=== PATIENT | male | born 1950 | race Caucasian/White ===

== ENCOUNTER 2017-08-16 13:05 | Inpatient (IN) | payer MEDICARE, OTHER ==
[~2017-08-16] VITALS: Ht 172.7 cm; Wt 62.3 kg
[~2017-08-16 13:05] MED LIST: CARV6.252 PO; DONE10TA21 PO; MEMA10TA PO; RISP0.2515 PO
[2017-08-16] MEDS ORDERED: TEMA15CA PO (13:34)
[2017-08-16] MEDS ORDERED: CHOL50002 PO (13:34)
[2017-08-16] MEDS ORDERED: LORA0.5T PO (13:34)
[2017-08-16] MEDS ORDERED: DIVA500T7 PO (13:34)
[2017-08-16] MEDS ORDERED: LORA10TA7 PO (13:34)
[2017-08-16] MEDS ORDERED: MEMA10TA PO (13:34)
[2017-08-16] MEDS ORDERED: ESOM40CA PO (13:34)
[2017-08-16] MEDS ORDERED: ASPI81TA31 PO (13:34)
[2017-08-16 14:36] LABS: BASOPHILS # (AUTO) 0.1 K/uL (0.0-8.0); BASOPHILS % (AUTO) 0.9 % (0.0-2.0); EOSINOPHILS % (AUTO) 0.6 % (0.0-7.0); HEMATOCRIT 38.6 % (36.7-47.1); HEMOGLOBIN 12.6 g/dL (12.5-16.3); LYMPHOCYTES # (AUTO) 1.6 K/uL (20.0-40.0); LYMPHOCYTES % (AUTO) 19.9 % (20.5-51.5); MEAN CORPUSCULAR HGB CONC 33 g/dL (32.5-36.3); MONOCYTES # (AUTO) 1.1 K/uL (2.0-10.0); MONOCYTES % (AUTO) 14.2 % (0.0-11.0); NEUTROPHILS % (AUTO) 64.4 % (38.5-71.5); PLATELET COUNT (AUTO) 156 K/uL (152-348); RED BLOOD CELL COUNT(AUTO) 4.06 MIL/uL (4.06-5.63); WHITE BLOOD COUNT (AUTO) 7.8 K/uL (3.6-10.2)
[2017-08-16 14:41] LABS: CREATININE 1.6 mg/dL (0.6-1.3); POTASSIUM 4.4 mmol/L (3.5-5.1)
[2017-08-16 14:53] LABS: BILIRUBIN,DIRECT 0.1 mg/dL (0.0-0.2); BILIRUBIN,TOTAL 0.3 mg/dL (0.2-1.0); TOTAL PROTEIN, SERUM 7.1 g/dL (6.4-8.2)
[2017-08-16] MEDS ORDERED: IV NORMAL SALINE 1000 ML BAG IV ONE (15:00)
[2017-08-16] MEDS ORDERED: PIPERACILLIN SODIUM/TAZOBACTAM 3.375 G in IV DEXTROSE 5% 50 ML IV ONE (15:00)
[2017-08-16] MEDS ORDERED: VANCOMYCIN IV 1,000 MG in IV DEXTROSE 5% 250 ML IV ONE (15:00)
--- NOTE | 2017-08-16 15:00 | NUR ---
PT DUGHTR AT BESIDE FEEDING THE PT WITH SOUP.
--- NOTE | 2017-08-16 15:04 | NUR ---
PT DAUGHTER REFUSED CATH, PLACED URINAL
[2017-08-16] MEDS ORDERED: PIPERACILLIN/TAZOBACTAM/D5W 50 ML IV ONE (15:29)
[2017-08-16] MEDS ORDERED: VANCOMYCIN IV 200 ML ONE (15:29)
[2017-08-16 16:16] LABS: *BILIRUBIN,URIN NEGATIVE (NEGATIVE); *BLOOD, URINE Trace-intact (NEGATIVE); *CLARITY,URINE CLEAR (CLEAR); *COLOR,URINE YELLOW (YELLOW); *KETONES,URINE NEGATIVE (NEGATIVE); *PROTEIN,URINE NEGATIVE (NEGATIVE); LEUKOCYTE ESTERASE ,URINE NEGATIVE (NEGATIVE); NITRITE, URINE NEGATIVE (NEGATIVE); PH,URINE 6.5 (5.0-8.0); UGLUCOSE NEGATIVE (NEGATIVE)
[2017-08-16 16:27] LABS: MUCUS,URINE FEW /LPF (0-FEW); SQUAMOUS EPITHELIAL CELL,UR FEW /HPF (NONE SEEN); WBC,URINE 0-3 /HPF (0-3)
[2017-08-16] MEDS ORDERED: ACETAMINOPHEN ES 500 MG TABLET ONE (17:45)
[2017-08-16] MEDS ORDERED: ACETAMINOPHEN ES 500 MG TABLET PO ONE (17:45)
[2017-08-16 20:30] VITALS: BP 125/65
[2017-08-16] MEDS ORDERED: ZOLPIDEM 5 MG TABLET PO PRN (21:45)
--- NOTE | 2017-08-16 22:05 | NUR ---
Received pt admitted to Tele floor at 1999. Daughter at bedside. Patient unable to speak to me, so daughter is answering admission questions. Pt stable. Oriented pt and daughter to the unit and use of call light. Called Dr. Dougherty for orders. Portable CXR done at bedside at this time. Tolerated procedure well.
[2017-08-16] MEDS ORDERED: ALBUTEROL SULFATE 2.5 MG/3 ML NEBU NEB PRN (22:30)
[2017-08-16] MEDS ORDERED: IPRATROPIUM BROMIDE 0.5 MG/2.5 ML NEBU NEB PRN (22:30)
[2017-08-16] MEDS ORDERED: CEFTRIAXONE 1 G VIAL ONE (22:51)
[2017-08-16] MEDS ORDERED: AZITHROMYCIN 500 MG VIAL IV ONE (22:51)
[2017-08-16] MEDS: ENOXAPARIN SODIUM 30 MG/0.3 ML DISP.SYRIN SUBCUT SCH (23:39)
[2017-08-16] MEDS: CEFTRIAXONE 1 G in IV DEXTROSE 5% 50 ML IV SCH (23:40)
[2017-08-17] VITALS: BP 109/51
[2017-08-17] MEDS: AZITHROMYCIN IV 500 MG in IV DEXTROSE 5% 250 ML IV SCH ×2 (00:39→23:05)
[2017-08-17 04:00] VITALS: BP 132/77
[2017-08-17] MEDS: IV NS 1000 ML 1,000 ML IV PRN ×2 (04:27→10:59)
[2017-08-17] MEDS: ACETAMINOPHEN 325 MG TABLET PO PRN ×2 (05:54→20:32)
--- NOTE | 2017-08-17 06:53 | NUR ---
Pt slept lightly throughout the night. Continues with fever all night. Current temp is 99. Administered PRN Tylenol and implemented cooling measures. Tolerated IV antibiotics well- no adverse reaction noted. Fed pt a cup of applesauce and encouraged drinking fluids. Requires assistance to eat and drink. Pt unable to speak/make needs known. All needs attended to. No evidence of distress noted. Daughter will return in the AM to hopefully speak with the PMD. Current tele rhythm is sinus bradycardia.
[2017-08-17 07:26] LABS: BASOPHILS # (AUTO) 0.1 K/uL (0.0-8.0); BASOPHILS % (AUTO) 0.5 % (0.0-2.0); EOSINOPHILS % (AUTO) 0.2 % (0.0-7.0); HEMATOCRIT 36.4 % (36.7-47.1); LYMPHOCYTES # (AUTO) 1.3 K/uL (20.0-40.0); LYMPHOCYTES % (AUTO) 10.1 % (20.5-51.5); MEAN CORPUSCULAR HGB CONC 33 g/dL (32.5-36.3); MEAN CORPUSCULAR VOLUME 94.4 fL (73.0-96.2); MONOCYTES # (AUTO) 1.7 K/uL (2.0-10.0); MONOCYTES % (AUTO) 12.7 % (0.0-11.0); NEUTROPHILS % (AUTO) 76.5 % (38.5-71.5); PLATELET COUNT (AUTO) 107 K/uL (152-348); RED BLOOD CELL COUNT(AUTO) 3.86 MIL/uL (4.06-5.63); WHITE BLOOD COUNT (AUTO) 13.1 K/uL (3.6-10.2)
[2017-08-17 07:36] LABS: BILIRUBIN,TOTAL 0.3 mg/dL (0.2-1.0); CREATININE 1.4 mg/dL (0.6-1.3); MAGNESIUM 1.8 mg/dL (1.8-2.4); PHOSPHOROUS 2.8 mg/dL (2.5-4.9); POTASSIUM 3.8 mmol/L (3.5-5.1); TOTAL PROTEIN, SERUM 6.4 g/dL (6.4-8.2)
--- NOTE | 2017-08-17 07:45 | NUR ---
Awake, non verbal, daughter at bedside. IVF infusing.
[2017-08-17 10:02] LABS: LYMPHOCYTES % (MANUAL) 13 % (20-40); MONOCYTES % (MANUAL) 10 % (2-10); NEUTROPHILS % (MANUAL) 77 % (42-75)
[2017-08-17] MEDS ORDERED: MEMANTINE HCL 10 MG TABLET PO SCH (10:15)
[2017-08-17] MEDS ORDERED: DIVALPROEX 500 MG TABLET.DR PO SCH (10:15)
--- NOTE | 2017-08-17 10:30 | NUR ---
With BM to soft brown stool. Incontinence care done. Repositioned on bed comfortably.
[2017-08-17] MEDS: LORATADINE 10 MG TABLET PO SCH (10:48)
[2017-08-17] MEDS: ASPIRIN 81 MG TAB.CHEW PO SCH (10:49)
[2017-08-17] MEDS: PANTOPRAZOLE SODIUM 40 MG TABLET.DR PO SCH (10:49)
[2017-08-17] MEDS: DIVALPROEX 250 MG TABLET.DR PO SCH ×3 (10:49→21:00)
[2017-08-17] MEDS: CARVEDILOL 6.25 MG TABLET PO SCH ×2 (10:51→17:22)
[2017-08-17] MEDS: LORAZEPAM 0.5 MG TABLET PO PRN (10:53)
[2017-08-17 10:56] VITALS: BP 147/82
[2017-08-17] MEDS: MEMANTINE HCL 10 MG TABLET PO SCH ×2 (12:48→17:22)
[2017-08-17] MEDS: DONEPEZIL 10 MG TABLET PO SCH (12:49)
[2017-08-17] MEDS: risperiDONE 0.25 MG TABLET PO SCH ×2 (12:49→17:22)
[2017-08-17 14:58] VITALS: BP 145/76
--- NOTE | 2017-08-17 16:00 | NUR ---
ST german done at bedside. Diet changed to mechanical soft
--- NOTE | 2017-08-17 18:11 | NUR ---
Afebrile. IVF infusing. Kept dry and comfortable. Daughter at bedside
[2017-08-17 20:00] VITALS: BP 132/75
--- NOTE | 2017-08-17 20:30 | NUR ---
RECEIVED IN BED AWAKE BUT CONFUSED DUE TO HEALTH CONDITION, GIVEN TYLENOL PLUS COOLING MEASURES FOR SLIGHT ELEVATED TEMP, KEPT CLEAN AND DRY, DAUGHTER AT BEDSIDE, KEPT CLEAN AND DRY, CONT ABX FOR ELEVATED, CONT TO MONITOR. NO S/S OF DISTRESS.
[2017-08-17] MEDS: TEMAZEPAM 7.5 MG CAPSULE PO PRN (20:54)
[2017-08-17] MEDS ORDERED: TEMAZEPAM 15 MG CAPSULE PO SCH (21:00)
[2017-08-17] MEDS: ENOXAPARIN SODIUM 30 MG/0.3 ML DISP.SYRIN SUBCUT SCH (21:01)
[2017-08-17] MEDS: CEFTRIAXONE 1 G in IV DEXTROSE 5% 50 ML IV SCH (22:20)
--- NOTE | 2017-08-18 05:58 | NUR ---
PATIENT SLEPT MOST OF THE NIGHT, KEPT CLEAN AND DRY, TURN AND REPOSITION EVERY TWO HOURS, NO SOB NO CHEST PAIN NOTED, CONT TO MONITOR.
[2017-08-18] MEDS: DIVALPROEX 250 MG TABLET.DR PO SCH ×3 (06:07→21:01)
[2017-08-18] MEDS: PANTOPRAZOLE SODIUM 40 MG TABLET.DR PO SCH (06:07)
[2017-08-18 06:08] VITALS: BP 150/87
--- NOTE | 2017-08-18 06:30 | NUR ---
PATIENT PULLED OUT IV LINE, REINSERT NEW ONES, TOLERATE WELL, REORIENT PATIENT.
--- NOTE | 2017-08-18 08:00 | NUR ---
Awake, non verbal, on moderate high back rest. IVF infusing. Daughter at bedside
[2017-08-18] MEDS: risperiDONE 0.25 MG TABLET PO SCH ×2 (09:01→17:35)
[2017-08-18] MEDS: DONEPEZIL 10 MG TABLET PO SCH (09:01)
[2017-08-18] MEDS: MEMANTINE HCL 10 MG TABLET PO SCH ×2 (09:01→17:35)
[2017-08-18] MEDS: ASPIRIN 81 MG TAB.CHEW PO SCH (09:01)
[2017-08-18] MEDS: LORATADINE 10 MG TABLET PO SCH (09:01)
[2017-08-18] MEDS: CARVEDILOL 6.25 MG TABLET PO SCH ×2 (09:03→17:34)
[2017-08-18 09:35] LABS: BASOPHILS % (AUTO) 0.5 % (0.0-2.0); EOSINOPHILS # (AUTO) 0.1 K/uL (0.0-0.7); HEMATOCRIT 37.4 % (36.7-47.1); HEMOGLOBIN 12.4 g/dL (12.5-16.3); LYMPHOCYTES # (AUTO) 1.4 K/uL (20.0-40.0); LYMPHOCYTES % (AUTO) 14.6 % (20.5-51.5); MEAN CORPUSCULAR HEMOGLOBIN 31.3 uug (23.8-33.4); MEAN CORPUSCULAR HGB CONC 33 g/dL (32.5-36.3); MEAN CORPUSCULAR VOLUME 94.3 fL (73.0-96.2); MONOCYTES # (AUTO) 0.5 K/uL (2.0-10.0); MONOCYTES % (AUTO) 5.5 % (0.0-11.0); NEUTROPHILS # (AUTO) 7.4 K/uL (1.8-8.9); NEUTROPHILS % (AUTO) 78.4 % (38.5-71.5); RED BLOOD CELL COUNT(AUTO) 3.97 MIL/uL (4.06-5.63)
[2017-08-18 09:43] LABS: PLATELET COUNT (AUTO) 142 K/uL (152-348); WHITE BLOOD COUNT (AUTO) 9.4 K/uL (3.6-10.2)
[2017-08-18 09:45] LABS: BILIRUBIN,TOTAL 0.3 mg/dL (0.2-1.0); CREATININE 1.4 mg/dL (0.6-1.3); MAGNESIUM 1.9 mg/dL (1.8-2.4); PHOSPHOROUS 3.7 mg/dL (2.5-4.9); POTASSIUM 3.8 mmol/L (3.5-5.1); TOTAL PROTEIN, SERUM 6.7 g/dL (6.4-8.2)
--- NOTE | 2017-08-18 10:00 | NUR ---
Incontinence care with sponge bath given. Repositioned comfortably
[2017-08-18] MEDS: IV NS 1000 ML 1,000 ML IV PRN ×2 (10:03→17:38)
[2017-08-18 11:59] VITALS: BP 142/76
--- NOTE | 2017-08-18 14:00 | NUR ---
Incontinence care done. Repositioned comfortably
[2017-08-18 15:55] VITALS: BP 136/71
--- NOTE | 2017-08-18 17:27 | NUR ---
Daughter at bedside assisting with meal
[2017-08-18 20:00] VITALS: BP 146/83
[2017-08-18] MEDS: TEMAZEPAM 7.5 MG CAPSULE PO PRN (20:53)
[2017-08-18] MEDS: ENOXAPARIN SODIUM 30 MG/0.3 ML DISP.SYRIN SUBCUT SCH (20:54)
[2017-08-18] MEDS ORDERED: OSELTAMIVIR PHOSPHATE 75 MG CAPSULE PO SCH (21:00)
[2017-08-18] MEDS: CEFTRIAXONE 1 G in IV DEXTROSE 5% 50 ML IV SCH (21:01)
[2017-08-18] MEDS: AZITHROMYCIN IV 500 MG in IV DEXTROSE 5% 250 ML IV SCH (21:02)
[2017-08-18] MEDS: OSELTAMIVIR NG/GT 30 MG/5 ML LIQ PO ONE ×2 (21:02→21:56)
[2017-08-19] MEDS: LORAZEPAM 0.5 MG TABLET PO PRN (03:10)
[2017-08-19] MEDS: IV NS 1000 ML 1,000 ML IV PRN (05:13)
[2017-08-19 05:31] VITALS: BP 127/65
[2017-08-19] MEDS: DIVALPROEX 250 MG TABLET.DR PO SCH ×2 (06:10→15:02)
[2017-08-19] MEDS: PANTOPRAZOLE SODIUM 40 MG TABLET.DR PO SCH (06:10)
--- NOTE | 2017-08-19 06:46 | NUR ---
Patient given PRN Restoril last night to help with sleep. Pt slept for about 3 hours and woke up moving around in bed a lot. Administered PRN Ativan, which helped calm pt and let him sleep for 2 more hours. Pt constantly moving around in bed, unable to sleep. Offered food and fluids, changed diapers as needed. Otherwise no significant events. Remained afebrile through the shift.
[2017-08-19 06:59] LABS: BASOPHILS # (AUTO) 0.1 K/uL (0.0-8.0); BASOPHILS % (AUTO) 0.8 % (0.0-2.0); EOSINOPHILS # (AUTO) 0.2 K/uL (0.0-0.7); EOSINOPHILS % (AUTO) 2.1 % (0.0-7.0); HEMATOCRIT 36.4 % (36.7-47.1); HEMOGLOBIN 12.2 g/dL (12.5-16.3); LYMPHOCYTES # (AUTO) 1.7 K/uL (20.0-40.0); LYMPHOCYTES % (AUTO) 17.1 % (20.5-51.5); MEAN CORPUSCULAR HEMOGLOBIN 31.4 uug (23.8-33.4); MEAN CORPUSCULAR HGB CONC 34 g/dL (32.5-36.3); MEAN CORPUSCULAR VOLUME 93.8 fL (73.0-96.2); MONOCYTES # (AUTO) 1.2 K/uL (2.0-10.0); MONOCYTES % (AUTO) 12.6 % (0.0-11.0); NEUTROPHILS # (AUTO) 6.6 K/uL (1.8-8.9); NEUTROPHILS % (AUTO) 67.4 % (38.5-71.5); PLATELET COUNT (AUTO) 164 K/uL (152-348); RED BLOOD CELL COUNT(AUTO) 3.88 MIL/uL (4.06-5.63); WHITE BLOOD COUNT (AUTO) 9.7 K/uL (3.6-10.2)
--- NOTE | 2017-08-19 07:39 | NUR ---
Received client in bed wake and alert in a flat supine position. Client is non-verbal, daughter is by bedside. No apparent s/s of pain, SOB, distress or discomfort. IV hydration running at this time. Bed at lowest position for safety and call light within reach for assistance
[2017-08-19 07:42] LABS: BILIRUBIN,TOTAL 0.3 mg/dL (0.2-1.0); CREATININE 1.4 mg/dL (0.6-1.3); PHOSPHOROUS 3.9 mg/dL (2.5-4.9); POTASSIUM 5.3 mmol/L (3.5-5.1); TOTAL PROTEIN, SERUM 6.7 g/dL (6.4-8.2)
[2017-08-19] MEDS ORDERED: AZIT250T13 PO (07:53)
[2017-08-19] MEDS ORDERED: CEFT1VIA15 IV ×2 (07:53→20:27)
--- NOTE | 2017-08-19 08:18 | NUR ---
Seen and evaluated by MD at this time
[2017-08-19] MEDS: CARVEDILOL 6.25 MG TABLET PO SCH ×2 (08:52→17:23)
[2017-08-19] MEDS: DONEPEZIL 10 MG TABLET PO SCH (08:52)
[2017-08-19] MEDS: MEMANTINE HCL 10 MG TABLET PO SCH ×2 (08:53→17:22)
[2017-08-19] MEDS: LORATADINE 10 MG TABLET PO SCH (08:53)
[2017-08-19] MEDS: risperiDONE 0.25 MG TABLET PO SCH ×2 (08:53→17:23)
[2017-08-19] MEDS: ASPIRIN 81 MG TAB.CHEW PO SCH (08:53)
--- NOTE | 2017-08-19 11:20 | NUR ---
Physical Therapy in progress at this time with the assistance of two physical therapists. Able to ambulate with assistive device and two therapists. Family in the room and now walking behind the client and the therapists down the hallway. Client is tolerating walking well, no apparent s/s of pain, distress, discomfort or SOB
[2017-08-19 11:32] VITALS: BP 109/63
[2017-08-19 15:43] VITALS: BP 124/67
[2017-08-19 17:23] VITALS: BP 140/95
--- NOTE | 2017-08-19 18:00 | NUR ---
Client discharged to [facility] rehab center with MD orders, Client is accompanied by STONE DERRICKMAN AND RIGGER and my daughter via wheelchair. No apparent s/s of pain, distress, discomfort or SOB. Medications for 1700 and BP for 1800 given. Report was given to Lexy at 1645.
[2017-08-24] MEDS ORDERED: ERGOCALCIFEROL 50,000 UNIT CAPSULE PO SCH (09:00)
== END 2017-08-19 17:55 | DRG 871 ==
LOC: ER 13:05 → TELE 19:13 → MED 08-17 11:05
PROVIDERS: ADMIT Internal Medicine; ATTEND Internal Medicine
DX: A41.9 Sepsis, unspecified organism (principal); G92 Toxic encephalopathy; E87.2 Acidosis; J21.9 Acute bronchiolitis, unspecified; G30.9 Alzheimer's disease, unspecified; F02.80 Dementia in other diseases classified elsewhere, unspecified severity, without behavioral disturbance, psychotic disturbance, mood disturbance, and anxiety; R65.20 Severe sepsis without septic shock; K21.9 Gastro-esophageal reflux disease without esophagitis; Z79.82 Long term (current) use of aspirin; K59.00 Constipation, unspecified; R32 Unspecified urinary incontinence; Z79.899 Other long term (current) drug therapy; I25.10 Atherosclerotic heart disease of native coronary artery without angina pectoris; I10 Essential (primary) hypertension
CPT/HCPCS: 36415; 70030-TC; 71045; 80164; 83605; 83735; 84100; 84443; 85025; 85730; 87040; 87086; 87400; 92610; 93005; A4663; A9150; J0456; J0696; J1650; J2543; J3370; J3490; J7030; J7060

== ENCOUNTER 2017-08-19 18:13 | Inpatient (IN) | payer MEDICARE, OTHER ==
[~2017-08-19] VITALS: Ht 180.3 cm; Wt 67.6 kg
[~2017-08-19 18:13] MED LIST changes: +ASPI81TA31 PO; +AZIT250T13 PO; +CEFT1VIA15 IV; +CHOL50002 PO; +DIVA500T7 PO; +ESOM40CA PO; +LORA0.5T PO; +LORA10TA7 PO; +TEMA15CA PO
[2017-08-19] MEDS ORDERED: Z GUARD REMEDY PASTE 57 GM TUBE TOP PRN (18:30)
[2017-08-19] MEDS ORDERED: CEFT1VIA15 IV (20:27)
[2017-08-19] MEDS ORDERED: CEFTRIAXONE 1 G in IV DEXTROSE 5% 50 ML IV SCH ×2 (20:30→21:45)
[2017-08-19] MEDS ORDERED: CHOLECALCIFEROL 50000 UNIT PO SCH (20:30)
[2017-08-19] MEDS ORDERED: TEMAZEPAM 15 MG CAPSULE PO PRN (20:30)
[2017-08-19] MEDS: AZITHROMYCIN 250 MG TABLET PO SCH (21:43)
[2017-08-19] MEDS: MEMANTINE HCL 10 MG TABLET PO SCH (21:43)
[2017-08-19] MEDS: LORAZEPAM 0.5 MG TABLET PO PRN (21:43)
[2017-08-19] MEDS: CEFTRIAXONE 1 G in IV NORMAL SALINE 50 ML IV SCH (21:51)
[2017-08-19] MEDS: TEMAZEPAM 7.5 MG CAPSULE PO PRN (22:36)
[2017-08-20] MEDS: PANTOPRAZOLE SODIUM 40 MG TABLET.DR PO SCH (06:41)
[2017-08-20 07:40] LABS: BASOPHILS % (AUTO) 0.6 % (0.0-2.0); EOSINOPHILS # (AUTO) 0.1 K/uL (0.0-0.7); EOSINOPHILS % (AUTO) 1.6 % (0.0-7.0); HEMATOCRIT 35.7 % (36.7-47.1); LYMPHOCYTES # (AUTO) 1.6 K/uL (20.0-40.0); LYMPHOCYTES % (AUTO) 20.9 % (20.5-51.5); MEAN CORPUSCULAR HEMOGLOBIN 31.5 uug (23.8-33.4); MEAN CORPUSCULAR HGB CONC 34 g/dL (32.5-36.3); MEAN CORPUSCULAR VOLUME 93.5 fL (73.0-96.2); MONOCYTES % (AUTO) 13.5 % (0.0-11.0); NEUTROPHILS # (AUTO) 4.7 K/uL (1.8-8.9); NEUTROPHILS % (AUTO) 63.4 % (38.5-71.5); PLATELET COUNT (AUTO) 184 K/uL (152-348); RED BLOOD CELL COUNT(AUTO) 3.82 MIL/uL (4.06-5.63); WHITE BLOOD COUNT (AUTO) 7.5 K/uL (3.6-10.2)
[2017-08-20] MEDS: ASPIRIN 81 MG TAB.CHEW PO SCH (08:16)
[2017-08-20] MEDS: DONEPEZIL 10 MG TABLET PO SCH (08:16)
[2017-08-20] MEDS: AZITHROMYCIN 250 MG TABLET PO SCH (08:17)
[2017-08-20] MEDS: risperiDONE 0.25 MG TABLET PO SCH ×2 (08:17→17:59)
[2017-08-20] MEDS: LORATADINE 10 MG TABLET PO SCH (08:17)
[2017-08-20] MEDS: DIVALPROEX 500 MG TABLET.DR PO SCH ×3 (08:18→17:59)
[2017-08-20] MEDS: MEMANTINE HCL 10 MG TABLET PO SCH ×2 (08:18→21:00)
[2017-08-20] MEDS: CARVEDILOL 6.25 MG TABLET PO SCH ×2 (08:19→17:59)
[2017-08-20 08:30] LABS: CREATININE 1.2 mg/dL (0.6-1.3); PHOSPHOROUS 3.8 mg/dL (2.5-4.9); POTASSIUM 3.9 mmol/L (3.5-5.1)
[2017-08-20] MEDS ORDERED: Medication Not On Formulary EA (Donepezil Hcl 10 MG) PO SCH (09:00)
[2017-08-20] MEDS ORDERED: MEMANTINE HCL 10 MG TABLET PO SCH (09:00)
[2017-08-20] MEDS ORDERED: AZITHROMYCIN 250 MG TABLET PO SCH (09:00)
[2017-08-20 20:21] VITALS: BP 120/73
[2017-08-20] MEDS: LACTOBACILLUS RHAMNOSUS GG 1 EACH CAPSULE PO SCH (21:00)
[2017-08-20] MEDS: LORAZEPAM 0.5 MG TABLET PO PRN (21:00)
[2017-08-20] MEDS: CEFTRIAXONE 1 G in IV NORMAL SALINE 50 ML IV SCH (21:06)
[2017-08-20] MEDS: TEMAZEPAM 7.5 MG CAPSULE PO PRN (21:49)
[2017-08-21] MEDS: PANTOPRAZOLE SODIUM 40 MG TABLET.DR PO SCH (06:40)
[2017-08-21 07:30] VITALS: BP 121/72
[2017-08-21] MEDS: AZITHROMYCIN 250 MG TABLET PO SCH (10:03)
[2017-08-21] MEDS: LORATADINE 10 MG TABLET PO SCH (10:03)
[2017-08-21] MEDS: LACTOBACILLUS RHAMNOSUS GG 1 EACH CAPSULE PO SCH ×2 (10:03→20:52)
[2017-08-21] MEDS: DONEPEZIL 10 MG TABLET PO SCH (10:03)
[2017-08-21] MEDS: DIVALPROEX 500 MG TABLET.DR PO SCH ×3 (10:03→17:08)
[2017-08-21] MEDS: ACETAMINOPHEN ES 500 MG TABLET PO PRN (10:04)
[2017-08-21] MEDS: CARVEDILOL 6.25 MG TABLET PO SCH ×2 (10:04→17:11)
[2017-08-21] MEDS: ASPIRIN 81 MG TAB.CHEW PO SCH (10:04)
[2017-08-21] MEDS: MEMANTINE HCL 10 MG TABLET PO SCH ×2 (10:04→20:52)
[2017-08-21] MEDS: risperiDONE 0.25 MG TABLET PO SCH ×2 (10:04→17:08)
[2017-08-21 20:19] VITALS: BP 144/82
[2017-08-21] MEDS: LORAZEPAM 0.5 MG TABLET PO PRN (20:52)
[2017-08-21] MEDS: CEFTRIAXONE 1 G in IV NORMAL SALINE 50 ML IV SCH (20:58)
[2017-08-21] MEDS: TEMAZEPAM 7.5 MG CAPSULE PO PRN (22:48)
[2017-08-22] MEDS: PANTOPRAZOLE SODIUM 40 MG TABLET.DR PO SCH (06:20)
[2017-08-22 08:05] VITALS: BP 118/75
[2017-08-22] MEDS: DIVALPROEX 500 MG TABLET.DR PO SCH ×3 (09:20→16:35)
[2017-08-22] MEDS: LACTOBACILLUS RHAMNOSUS GG 1 EACH CAPSULE PO SCH ×2 (09:20→20:29)
[2017-08-22] MEDS: MEMANTINE HCL 10 MG TABLET PO SCH ×2 (09:20→20:29)
[2017-08-22] MEDS: risperiDONE 0.25 MG TABLET PO SCH ×2 (09:20→16:36)
[2017-08-22] MEDS: LORATADINE 10 MG TABLET PO SCH (09:20)
[2017-08-22] MEDS: AZITHROMYCIN 250 MG TABLET PO SCH (09:20)
[2017-08-22] MEDS: DONEPEZIL 10 MG TABLET PO SCH (09:20)
[2017-08-22] MEDS: ACETAMINOPHEN ES 500 MG TABLET PO PRN ×2 (09:20→16:36)
[2017-08-22] MEDS: ASPIRIN 81 MG TAB.CHEW PO SCH (09:21)
[2017-08-22] MEDS: CARVEDILOL 6.25 MG TABLET PO SCH ×2 (09:21→16:34)
[2017-08-22 19:30] VITALS: BP 126/73
[2017-08-22] MEDS: LORAZEPAM 0.5 MG TABLET PO PRN (20:29)
[2017-08-22] MEDS: CEFTRIAXONE 1 G in IV NORMAL SALINE 50 ML IV SCH (21:12)
[2017-08-22] MEDS: TEMAZEPAM 7.5 MG CAPSULE PO PRN (21:43)
[2017-08-23] MEDS: PANTOPRAZOLE SODIUM 40 MG TABLET.DR PO SCH (06:09)
[2017-08-23 08:00] VITALS: BP 140/85
[2017-08-23] MEDS ORDERED: ERGOCALCIFEROL 50,000 UNIT CAPSULE PO SCH (09:00)
[2017-08-23] MEDS: LACTOBACILLUS RHAMNOSUS GG 1 EACH CAPSULE PO SCH (09:29)
[2017-08-23] MEDS: risperiDONE 0.25 MG TABLET PO SCH (09:29)
[2017-08-23] MEDS: LORATADINE 10 MG TABLET PO SCH (09:29)
[2017-08-23] MEDS: MEMANTINE HCL 10 MG TABLET PO SCH (09:29)
[2017-08-23] MEDS: DIVALPROEX 500 MG TABLET.DR PO SCH (09:29)
[2017-08-23 09:30] VITALS: BP 140/85
[2017-08-23] MEDS: CARVEDILOL 6.25 MG TABLET PO SCH (09:30)
[2017-08-23] MEDS: ASPIRIN 81 MG TAB.CHEW PO SCH (09:30)
[2017-08-23] MEDS: DONEPEZIL 10 MG TABLET PO SCH (09:30)
[2017-08-23] MEDS: AZITHROMYCIN 250 MG TABLET PO SCH (09:31)
[2017-08-23] MEDS: ACETAMINOPHEN ES 500 MG TABLET PO PRN (09:33)
== END 2017-08-23 12:00 | DRG 71 ==
PROVIDERS: ADMIT Physical Medicine & Rehabilitation Pain Medicine; ATTEND Physical Medicine & Rehabilitation Pain Medicine
DX: G93.41 Metabolic encephalopathy (principal); J21.9 Acute bronchiolitis, unspecified; G30.9 Alzheimer's disease, unspecified; F02.80 Dementia in other diseases classified elsewhere, unspecified severity, without behavioral disturbance, psychotic disturbance, mood disturbance, and anxiety; F03.90 Unspecified dementia, unspecified severity, without behavioral disturbance, psychotic disturbance, mood disturbance, and anxiety; I10 Essential (primary) hypertension; I25.10 Atherosclerotic heart disease of native coronary artery without angina pectoris; R26.9 Unspecified abnormalities of gait and mobility; R53.1 Weakness
CPT/HCPCS: 36415; 70030-TC; 80164; 83735; 84100; 85025; 92523; 97110; 97112; 97116; 97530; 97535; A9150; J0696; J3490; J7050; J7060; Q0144

== ENCOUNTER 2018-11-02 13:13 | Inpatient (IN) | payer MEDICARE, OTHER ==
[~2018-11-02] VITALS: Ht 180.3 cm; Wt 63.5 kg
[~2018-11-02 13:13] MED LIST changes: +DIVA-78 PO; -DIVA500T7 PO
[2018-11-02] MEDS ORDERED: IV NORMAL SALINE 500 ML BAG IV ONE (13:30)
[2018-11-02] MEDS ORDERED: QUET25TA PO (13:48)
[2018-11-02 13:54] LABS: CREATININE 1.4 mg/dL (0.6-1.3); POTASSIUM 4.6 mmol/L (3.5-5.1)
[2018-11-02 13:58] LABS: BASOPHILS % (AUTO) 0.8 % (0.0-2.0); EOSINOPHILS # (AUTO) 0.1 K/uL (0.0-0.7); HEMATOCRIT 34.3 % (36.7-47.1); HEMOGLOBIN 11.2 g/dL (12.5-16.3); LYMPHOCYTES # (AUTO) 1.2 K/uL (20.0-40.0); LYMPHOCYTES % (AUTO) 22.8 % (20.5-51.5); MEAN CORPUSCULAR HEMOGLOBIN 31.4 uug (23.8-33.4); MEAN CORPUSCULAR HGB CONC 33 g/dL (32.5-36.3); MEAN CORPUSCULAR VOLUME 96.1 fL (73.0-96.2); MONOCYTES # (AUTO) 0.6 K/uL (2.0-10.0); MONOCYTES % (AUTO) 10.5 % (0.0-11.0); NEUTROPHILS # (AUTO) 3.5 K/uL (1.8-8.9); NEUTROPHILS % (AUTO) 64.9 % (38.5-71.5); PLATELET COUNT (AUTO) 129 K/uL (152-348); RED BLOOD CELL COUNT(AUTO) 3.57 MIL/uL (4.06-5.63); WHITE BLOOD COUNT (AUTO) 5.3 K/uL (3.6-10.2)
[2018-11-02 14:00] LABS: BILIRUBIN,DIRECT 0.1 mg/dL (0.0-0.2); BILIRUBIN,TOTAL 0.3 mg/dL (0.2-1.0); TOTAL PROTEIN, SERUM 6.7 g/dL (6.4-8.2)
[2018-11-02] MEDS ORDERED: IV NORMAL SALINE 1000 ML BAG IV ONE (14:30)
[2018-11-02 15:32] LABS: *BILIRUBIN,URIN NEGATIVE (NEGATIVE); *BLOOD, URINE NEGATIVE (NEGATIVE); *CLARITY,URINE CLEAR (CLEAR); *COLOR,URINE YELLOW (YELLOW); *KETONES,URINE NEGATIVE (NEGATIVE); LEUKOCYTE ESTERASE ,URINE NEGATIVE (NEGATIVE); NITRITE, URINE NEGATIVE (NEGATIVE); PH,URINE 5.5 (5.0-8.0); UGLUCOSE NEGATIVE (NEGATIVE)
[2018-11-02 15:37] LABS: MUCUS,URINE MANY /LPF (0-FEW); RBC,URINE 0-3 /HPF (0-3); SQUAMOUS EPITHELIAL CELL,UR FEW /HPF (NONE SEEN); WBC,URINE 0-3 /HPF (0-3)
[2018-11-02 17:05] VITALS: BP 129/82
[2018-11-02] MEDS ORDERED: IV NS 1000 ML 1,000 ML IV SCH (18:30)
--- NOTE | 2018-11-02 19:10 | NUR ---
RECEIVED PATIENT FROM ER. NO RESPIRATORY DISTRESS O2 95% SHIVERING NOTED AFEBRILE NS STARTED AT 50ML PER HR CARE PLAN INITIATED PATIENT SEEN BY MD. SAFETY MAINTAINED
[2018-11-02 19:11] VITALS: BP 120/75
--- NOTE | 2018-11-02 19:30 | NUR ---
PATIENT RECEIVED LYING IN BED AND CONFUSED. NO SIGNS OF RESPIRATORY DISTRESS O2 SAT AT 97%. BED IN LOWEST POSITION, SIDE RAILS UP X2. CALL LIGHT IN REACH.
[2018-11-02] MEDS ORDERED: LORAZEPAM 0.5 MG TABLET PO PRN (20:30)
[2018-11-02] MEDS ORDERED: MAGNESIUM HYDROXIDE 30 ML LIQUID UDC PO PRN (20:45)
[2018-11-02] MEDS ORDERED: ZOLPIDEM 5 MG TABLET PO PRN (20:45)
[2018-11-02] MEDS ORDERED: ONDANSETRON 4 MG/2 ML VIAL IV PRN (20:45)
[2018-11-02] MEDS ORDERED: Z GUARD REMEDY PASTE 57 GM TUBE TOP PRN (20:45)
[2018-11-02] MEDS ORDERED: HYDROCODONE/APAP 5-325MG TABLET PO PRN (20:45)
[2018-11-02] MEDS ORDERED: TEMAZEPAM 7.5 MG CAPSULE PO PRN (21:30)
[2018-11-02] MEDS: DONEPEZIL 10 MG TABLET PO SCH (21:59)
[2018-11-02 23:53] VITALS: BP 162/83
[2018-11-03 03:13] VITALS: BP 128/80
--- NOTE | 2018-11-03 05:48 | NUR ---
PATIENT SLEEPING INTERMITTENTLY. A/OX3 AND CONFUSED. COMFORT MEASURES AND SAFETY MEASURES PROVIDED. BED IN LOWEST POSITION. BED ALARM ON. SIDE RAIL X2. CALL LIGHT WITHIN REACH.
[2018-11-03] MEDS: PANTOPRAZOLE SODIUM 40 MG TABLET.DR PO SCH (06:02)
--- NOTE | 2018-11-03 07:00 | NUR ---
PATIENT IS SLEEPING NO RESPIRATORY DISTRESS O2 95%, NO FEVER PATIENT SEEN BY MD. SAFETY MAINTAINED
[2018-11-03] MEDS ORDERED: ZOLPIDEM 5 MG TABLET PO PRN (07:30)
[2018-11-03] MEDS: DIVALPROEX 250 MG TABLET.DR PO SCH ×3 (08:44→17:28)
[2018-11-03] MEDS: DONEPEZIL 10 MG TABLET PO SCH (08:44)
[2018-11-03] MEDS: risperiDONE 0.25 MG TABLET PO SCH ×2 (08:44→17:28)
[2018-11-03] MEDS: CARVEDILOL 6.25 MG TABLET PO SCH ×2 (08:45→17:32)
[2018-11-03] MEDS: MEMANTINE HCL 10 MG TABLET PO SCH ×2 (08:49→17:28)
[2018-11-03] MEDS: LORATADINE 10 MG TABLET PO SCH (08:49)
[2018-11-03] MEDS ORDERED: MEMANTINE HCL 10 MG TABLET PO SCH ×2 (09:00)
[2018-11-03] MEDS ORDERED: ASPIRIN 81 MG TAB.CHEW PO SCH (09:00)
[2018-11-03] MEDS ORDERED: DIVALPROEX 500 MG TABLET.DR PO SCH (09:00)
[2018-11-03] MEDS ORDERED: LORATADINE 10 MG TABLET PO SCH (09:00)
[2018-11-03] MEDS ORDERED: ASPI-618 PO (10:13)
[2018-11-03] MEDS ORDERED: MEMA28CA PO (10:13)
[2018-11-03 11:40] VITALS: BP 109/59
[2018-11-03] MEDS: IV NS 1000 ML 1,000 ML IV PRN (13:32)
[2018-11-03] MEDS ORDERED: DOSING BY PHARMACY-MD TO SPECIFY MED/ROUTE IV PRN (14:45)
[2018-11-03 15:17] LABS: BASOPHILS % (AUTO) 0.8 % (0.0-2.0); EOSINOPHILS % (AUTO) 0.8 % (0.0-7.0); HEMATOCRIT 34.6 % (36.7-47.1); HEMOGLOBIN 11.4 g/dL (12.5-16.3); LYMPHOCYTES # (AUTO) 0.9 K/uL (20.0-40.0); LYMPHOCYTES % (AUTO) 17.3 % (20.5-51.5); MEAN CORPUSCULAR HEMOGLOBIN 31.3 uug (23.8-33.4); MEAN CORPUSCULAR HGB CONC 33 g/dL (32.5-36.3); MEAN CORPUSCULAR VOLUME 94.7 fL (73.0-96.2); MONOCYTES # (AUTO) 0.6 K/uL (2.0-10.0); MONOCYTES % (AUTO) 12.7 % (0.0-11.0); NEUTROPHILS # (AUTO) 3.4 K/uL (1.8-8.9); NEUTROPHILS % (AUTO) 68.4 % (38.5-71.5); PLATELET COUNT (AUTO) 144 K/uL (152-348); RED BLOOD CELL COUNT(AUTO) 3.65 MIL/uL (4.06-5.63); WHITE BLOOD COUNT (AUTO) 4.9 K/uL (3.6-10.2)
--- NOTE | 2018-11-03 15:40 | NUR ---
WOUND CARE CONSULT: PT PRESENTS WITH SACRAL SCARRING AND STAGE 3 ULCER TO LEFT MEDIAL ELBOW, PRESENT ON ADMISSION. RECOMMEND SURGICAL CONSULT. DR YOEL MACK NOTIFIED OF CONSULT REQUEST. RECOMMENDATIONS MADE FOR WOUND CARE AND SKIN PROTECTION. DISCUSSED WITH NURSING STAFF. WILL SEE PRN. CALDERON IN AGREEMENT WITH PLAN OF CARE. Addendum: 11/03/18 at 1542 by JADE MARROQUIN RN Amended: Links added.
[2018-11-03 15:43] LABS: CREATININE 1.1 mg/dL (0.6-1.3); MAGNESIUM 1.7 mg/dL (1.8-2.4); PHOSPHOROUS 2.5 mg/dL (2.5-4.9); POTASSIUM 3.4 mmol/L (3.5-5.1)
[2018-11-03 15:46] VITALS: BP 132/76
[2018-11-03] MEDS ORDERED: LEVOFLOXACIN 500 MG/D5W 500 MG in PREMIXED 1 EACH IV ONE (16:00)
--- NOTE | 2018-11-03 18:24 | NUR ---
PATIENT IS RESTING, CONFUSED NO RESPIRATORY DISTRESS O2 95%, NO FEVER SAFETY MAINTAINED
[2018-11-03 19:13] VITALS: BP 141/62
--- NOTE | 2018-11-03 21:00 | NUR ---
Patient is nonverbal and confused. IV on right hand intact and patent with NS running at 50mls/hr. No acute distress noted. No SOB. Comfort measures implemented. Safety maintained at all times. Will continue to monitor throughout shift
[2018-11-03] MEDS: QUETIAPINE FUMARATE 25 MG TABLET PO SCH (21:22)
[2018-11-03 23:32] VITALS: BP 156/91
[2018-11-04 03:13] VITALS: BP 133/90
[2018-11-04] MEDS: ACETAMINOPHEN 325 MG TABLET PO PRN ×2 (05:43→13:24)
[2018-11-04] MEDS: PANTOPRAZOLE SODIUM 40 MG TABLET.DR PO SCH (06:35)
[2018-11-04 06:41] LABS: BASOPHILS % (AUTO) 0.5 % (0.0-2.0); EOSINOPHILS % (AUTO) 0.2 % (0.0-7.0); HEMATOCRIT 33.9 % (36.7-47.1); HEMOGLOBIN 11.4 g/dL (12.5-16.3); LYMPHOCYTES # (AUTO) 0.8 K/uL (20.0-40.0); LYMPHOCYTES % (AUTO) 17.9 % (20.5-51.5); MEAN CORPUSCULAR HEMOGLOBIN 31.2 uug (23.8-33.4); MEAN CORPUSCULAR HGB CONC 34 g/dL (32.5-36.3); MEAN CORPUSCULAR VOLUME 93.3 fL (73.0-96.2); MONOCYTES # (AUTO) 0.4 K/uL (2.0-10.0); MONOCYTES % (AUTO) 8.7 % (0.0-11.0); NEUTROPHILS # (AUTO) 3.4 K/uL (1.8-8.9); NEUTROPHILS % (AUTO) 72.7 % (38.5-71.5); PLATELET COUNT (AUTO) 143 K/uL (152-348); RED BLOOD CELL COUNT(AUTO) 3.64 MIL/uL (4.06-5.63); WHITE BLOOD COUNT (AUTO) 4.7 K/uL (3.6-10.2)
[2018-11-04 06:53] LABS: CREATININE 1.1 mg/dL (0.6-1.3); MAGNESIUM 1.7 mg/dL (1.8-2.4); PHOSPHOROUS 2.4 mg/dL (2.5-4.9); POTASSIUM 3.8 mmol/L (3.5-5.1)
--- NOTE | 2018-11-04 07:23 | NUR ---
Patient 0400 T: 100.3. PRN Tylenol administered and cooling measures implemented. Current temperature 98.9. Continue plan of care.
[2018-11-04] MEDS: DONEPEZIL 10 MG TABLET PO SCH (08:44)
[2018-11-04] MEDS: LORATADINE 10 MG TABLET PO SCH (08:44)
[2018-11-04] MEDS: ASPIRIN EC 81 MG TABLET.DR PO SCH (08:44)
[2018-11-04] MEDS: risperiDONE 0.25 MG TABLET PO SCH ×2 (08:44→17:00)
[2018-11-04] MEDS: DIVALPROEX 250 MG TABLET.DR PO SCH ×3 (08:44→17:00)
[2018-11-04] MEDS: MEMANTINE HCL 10 MG TABLET PO SCH ×2 (08:44→17:00)
[2018-11-04] MEDS: CARVEDILOL 6.25 MG TABLET PO SCH ×2 (08:47→17:01)
[2018-11-04] MEDS: IV NS 1000 ML 1,000 ML IV PRN (10:05)
[2018-11-04 11:45] VITALS: BP 121/68
[2018-11-04] MEDS ORDERED: MAGNESIUM SULFATE/D5W 100 ML IV SCH ×3 (14:00→17:00)
--- NOTE | 2018-11-04 14:06 | NUR ---
CLINICAL PHARMACY NOTE:VANCOMYCIN DOSING Request for vancomycin dosing on 68 y/o male 5'11" 140lbs for sepsis temp 100.4F BUN 10 Scr 1.1 WBC 4.7 start vancomycin 1gm ivpb q18h estimated trough 15. Will order trough level prior to 4th dose. Will continue to monitor
[2018-11-04 15:30] VITALS: BP 155/82
[2018-11-04] MEDS: VANCOMYCIN IV 1 G in PREMIXED 0 EACH IV SCH (15:56)
[2018-11-04] MEDS ORDERED: LEVOFLOXACIN 500 MG/D5W 500 MG in PREMIXED 1 EACH IV SCH (16:00)
[2018-11-04] MEDS ORDERED: LEVOFLOXACIN 500 MG/D5W 500 MG in PREMIXED 1 EACH IV ONE (16:15)
[2018-11-04] MEDS ORDERED: NEUTRA PHOS PACKET PO ONE (16:45)
--- NOTE | 2018-11-04 19:00 | NUR ---
PATIENT SLEEPING INTERMITTENTLY NO REPIRATORY DISTRESS O2 SATS AT 95% PATIENT HAD LOW GRADE FEVER TREATED WITH TYLENOL AND COOLING MEASURES. PATIENT SEEN BY SAFETY MAINTAINED
--- NOTE | 2018-11-04 19:10 | NUR ---
PATIENT GIVEN ABX AND MAG WITH NO REACTION NOTED.
[2018-11-04 19:19] VITALS: BP 110/59
--- NOTE | 2018-11-04 19:50 | NUR ---
RECEIVED PATIENT FROM DAY SHIFT. DAUGHTER IS AT BEDSIDE. COMFORT AND SAFETY PROVIDED. IV IS PATENT.
[2018-11-04] MEDS: QUETIAPINE FUMARATE 25 MG TABLET PO SCH (21:13)
[2018-11-04] MEDS: CEFEPIME HCL 1 G in IV DEXTROSE 5% 50 ML IV SCH (21:14)
[2018-11-04 23:39] VITALS: BP 125/74
[2018-11-05 03:17] VITALS: BP 126/79
[2018-11-05] MEDS: PANTOPRAZOLE SODIUM 40 MG TABLET.DR PO SCH (06:18)
[2018-11-05 06:32] LABS: CREATININE 1.1 mg/dL (0.6-1.3); MAGNESIUM 2.2 mg/dL (1.8-2.4); PHOSPHOROUS 3.2 mg/dL (2.5-4.9); POTASSIUM 4.2 mmol/L (3.5-5.1)
--- NOTE | 2018-11-05 07:10 | NUR ---
received report from cage shift manager nurse, patient in bed awake, no distress noted at this time, bed in low position, side rails up x2.
--- NOTE | 2018-11-05 07:50 | NUR ---
PATIENT DID NOT SLEEP AT NIGHT. WOUND CARE WAS DONE, NO BM. FELL ASLEEP IN THE MORNING. COMFORT AND SAFETY PROVIDED. REPORT WAS ENDORSED TO THE DAY SHIFT RN.
[2018-11-05] MEDS: risperiDONE 0.25 MG TABLET PO SCH ×2 (08:47→16:58)
[2018-11-05] MEDS: ACETAMINOPHEN 325 MG TABLET PO PRN ×2 (08:47→18:13)
[2018-11-05] MEDS: DIVALPROEX 250 MG TABLET.DR PO SCH ×3 (08:47→16:58)
[2018-11-05] MEDS: ASPIRIN EC 81 MG TABLET.DR PO SCH (08:47)
[2018-11-05] MEDS: MEMANTINE HCL 10 MG TABLET PO SCH ×2 (08:47→16:58)
[2018-11-05] MEDS: DONEPEZIL 10 MG TABLET PO SCH (08:47)
[2018-11-05] MEDS: LORATADINE 10 MG TABLET PO SCH (08:47)
[2018-11-05] MEDS: CEFEPIME HCL 1 G in IV DEXTROSE 5% 50 ML IV SCH ×2 (08:48→20:19)
[2018-11-05] MEDS: VANCOMYCIN IV 1 G in PREMIXED 0 EACH IV SCH (08:48)
[2018-11-05] MEDS: CARVEDILOL 6.25 MG TABLET PO SCH ×2 (08:48→17:02)
[2018-11-05 11:37] VITALS: BP 90/48
[2018-11-05] MEDS: IV NS 1000 ML 1,000 ML IV PRN (14:03)
[2018-11-05 15:23] VITALS: BP 131/67
[2018-11-05] MEDS ORDERED: LEVOFLOXACIN 500 MG/D5W 500 MG in PREMIXED 1 EACH IV SCH (16:00)
--- NOTE | 2018-11-05 19:35 | NUR ---
received patient from the day shift. IV is patent, no acute distress noted. Comfort and safety provided.
[2018-11-05 19:47] VITALS: BP 101/63
[2018-11-05] MEDS: CULTURELLE CAPSULE PO SCH (20:28)
[2018-11-05] MEDS: QUETIAPINE FUMARATE 25 MG TABLET PO SCH (20:28)
[2018-11-06 01:15] VITALS: BP 91/54
[2018-11-06] MEDS: VANCOMYCIN IV 1 G in PREMIXED 0 EACH IV SCH (03:36)
[2018-11-06 05:03] VITALS: BP 111/83
[2018-11-06] MEDS: PANTOPRAZOLE SODIUM 40 MG TABLET.DR PO SCH (06:19)
--- NOTE | 2018-11-06 07:01 | NUR ---
PATIENT DID NOT SLEEP AT NIGHT. WOUND CARE WAS DONE, SMALL BM. ATE 3 VANILLA PUDDINGS DURING THE SHIFT. AWAKE IN THE MORNING. IV IS PATENT AND INTACT.COMFORT AND SAFETY PROVIDED. REPORT WAS ENDORSED TO THE DAY SHIFT RN.
[2018-11-06] MEDS: CEFEPIME HCL 1 G in IV DEXTROSE 5% 50 ML IV SCH (08:49)
[2018-11-06] MEDS: CARVEDILOL 6.25 MG TABLET PO SCH ×2 (08:51→17:55)
[2018-11-06] MEDS: DIVALPROEX 250 MG TABLET.DR PO SCH ×3 (08:52→17:47)
[2018-11-06] MEDS: CULTURELLE CAPSULE PO SCH (08:52)
[2018-11-06] MEDS: MEMANTINE HCL 10 MG TABLET PO SCH ×2 (08:52→17:47)
[2018-11-06] MEDS: ASPIRIN EC 81 MG TABLET.DR PO SCH (08:52)
[2018-11-06] MEDS: LORATADINE 10 MG TABLET PO SCH (08:52)
[2018-11-06] MEDS: DONEPEZIL 10 MG TABLET PO SCH (08:52)
[2018-11-06] MEDS: risperiDONE 0.25 MG TABLET PO SCH ×2 (08:52→17:47)
[2018-11-06 12:09] VITALS: BP 93/62
[2018-11-06] MEDS: IV NS 1000 ML 1,000 ML IV PRN (12:59)
--- NOTE | 2018-11-06 13:48 | NUR ---
CLINICAL PHARMACY NOTE:VANCOMYCIN DOSING S: To continue vancomycin dosing on 68 y/o male patient for sepsis O: temp 98.1F BUN 12 (11/05) Scr 1.1 (11/05) WBC 4.7 (11/04) ht 180 cm wt 63.5 kg Plan Will continue vancomycin 1gm ivpb q18h for today. 3rd dsoe was given today at 0300. Plan to check vanco trough level prior to 4th dose (ordered for today at 2029- RN has been informed to hold 2100 dose if vanco trough level above 20 mcg/ml). Pharmacy will check the level in am & adjust the dose if needed. Will continue to monitor
[2018-11-06 15:15] VITALS: BP 128/70
[2018-11-06] MEDS: ACETAMINOPHEN 325 MG TABLET PO PRN (15:21)
[2018-11-06 17:55] VITALS: BP 114/67
--- NOTE | 2018-11-06 18:31 | NUR ---
Patient resting in bed, no distress noted or indications of pain. Breckenridge given x1 at 1015 today for pain/discomfort. Tylenol x1 given for headache, patient observed grabbing head. Upon reassessment patient appeared calm, no signs of pain. Wound care done as ordered. Discharge wound photos taken. Patient discharge complete, pending machine pecan picker. Will endorse to oncoming shift. Addendum: 11/06/18 at 1833 by VIJI BISHOP RN Patient afebrile throughout shift.
--- NOTE | 2018-11-06 19:44 | NUR ---
AMBULANCE IS HERE. REPORT GIVEN TO THE FACILITY. AMBULANCE PICKED THE PATIENT AT 1940, TRIP# [id number]. BELONGINGS WERE GIVEN TO THE AMBULANCE. TELE BOX REMOVED AND RETURNED TO THE [facility].
[2018-11-08] MEDS ORDERED: ERGOCALCIFEROL 50,000 UNIT CAPSULE PO SCH (09:00)
[2018-11-09] MEDS ORDERED: ERGOCALCIFEROL 50,000 UNIT CAPSULE PO SCH (09:00)
== END 2018-11-06 19:40 | DRG 682 ==
LOC: ER 13:13 → TELE3 16:30
PROVIDERS: ADMIT Internal Medicine; ATTEND Internal Medicine
DX: N17.0 Acute kidney failure with tubular necrosis (principal); L89.023 Pressure ulcer of left elbow, stage 3; G93.41 Metabolic encephalopathy; E43 Unspecified severe protein-calorie malnutrition; L89.893 Pressure ulcer of other site, stage 3; E87.2 Acidosis; E87.0 Hyperosmolality and hypernatremia; Z68.1 Body mass index [BMI] 19.9 or less, adult; G30.9 Alzheimer's disease, unspecified; F02.80 Dementia in other diseases classified elsewhere, unspecified severity, without behavioral disturbance, psychotic disturbance, mood disturbance, and anxiety; K21.9 Gastro-esophageal reflux disease without esophagitis; R32 Unspecified urinary incontinence; I25.10 Atherosclerotic heart disease of native coronary artery without angina pectoris; Z79.82 Long term (current) use of aspirin; E86.9 Volume depletion, unspecified; R68.83 Chills (without fever); I12.9 Hypertensive chronic kidney disease with stage 1 through stage 4 chronic kidney disease, or unspecified chronic kidney disease; N18.9 Chronic kidney disease, unspecified; D64.9 Anemia, unspecified; D69.6 Thrombocytopenia, unspecified
CPT/HCPCS: 36415; 70030-TC; 71045; 83605; 83690; 83735; 84100; 85025; 85730; 87040; 87086; 93005; 97112; 97530; A4663; C1758; G0378; J0692; J1956; J3370; J3475; J3490; J7030; J7040; J7060

== ENCOUNTER 2019-10-26 23:36 | Inpatient (IN) | payer MEDICARE, OTHER ==
[~2019-10-26] VITALS: Ht 185.4 cm; Wt 70.3 kg
[~2019-10-26 23:36] MED LIST changes: +ASPI-618 PO; -ASPI81TA31 PO; -AZIT250T13 PO; -CEFT1VIA15 IV; -MEMA10TA PO; +MEMA28CA PO; +QUET25TA PO
--- NOTE | 2019-10-26 23:45 | NUR ---
Dr. Lott at bedside for MSE
[2019-10-26] MEDS ORDERED: ACETAMINOPHEN 650 MG SUPP.RECT RC ONE (23:54)
[2019-10-27] MEDS ORDERED: IV NORMAL SALINE 1000 ML BAG IV ONE
[2019-10-27] MEDS ORDERED: MEMA10TA PO (00:20)
[2019-10-27] MEDS ORDERED: PANT40TA4 PO (00:20)
[2019-10-27] MEDS ORDERED: ASCO500C18 PO (00:20)
[2019-10-27] MEDS ORDERED: ACET-2154 PO (00:20)
[2019-10-27] MEDS ORDERED: MELO-105 PO (00:20)
[2019-10-27] MEDS ORDERED: LORA-258 PO (00:20)
[2019-10-27] MEDS ORDERED: MULT-213 PO (00:20)
[2019-10-27] MEDS ORDERED: ZINC1CAP2 PO (00:20)
[2019-10-27] MEDS ORDERED: QUET25TA PO (00:20)
[2019-10-27] MEDS ORDERED: LACT1CAP61 PO (00:20)
[2019-10-27] MEDS ORDERED: CHOL50002 PO (00:20)
[2019-10-27] MEDS ORDERED: LIDO30AD10 TD (00:20)
--- NOTE | 2019-10-27 00:25 | NUR ---
Dr. Lott spoke with patient's daughter. Code status: CPR only Do not intubate
[2019-10-27 00:37] LABS: CARBON DIOXIDE 29 mmol/L (21-32); CHLORIDE 104 mmol/L (98-107); CREATININE 1.3 mg/dL (0.6-1.3); GLUCOSE 95 mg/dL (74-106); POTASSIUM 4.1 mmol/L (3.5-5.1); UREA NITROGEN, BLOOD 25 mg/dL (7-18)
[2019-10-27 00:50] LABS: ALANINE AMINOTRANSFERASE 11 U/L (16-63); ALKALINE PHOSPHATASE 39 U/L (50-136); ASPARTATE AMINOTRANSFERASE 18 U/L (15-37); BASOPHILS % (AUTO) 0.4 % (0.0-2.0); BILIRUBIN,DIRECT < 0.1 mg/dL (0.0-0.2); BILIRUBIN,TOTAL 0.4 mg/dL (0.2-1.0); EOSINOPHILS % (AUTO) 0.5 % (0.0-7.0); HEMATOCRIT 34.6 % (36.7-47.1); HEMOGLOBIN 11.5 g/dL (12.5-16.3); LYMPHOCYTES # (AUTO) 0.4 K/uL (20.0-40.0); LYMPHOCYTES % (AUTO) 6.3 % (20.5-51.5); MEAN CORPUSCULAR HEMOGLOBIN 31.7 uug (23.8-33.4); MEAN CORPUSCULAR HGB CONC 33 g/dL (32.5-36.3); MEAN CORPUSCULAR VOLUME 95.1 fL (73.0-96.2); MONOCYTES # (AUTO) 0.3 K/uL (2.0-10.0); MONOCYTES % (AUTO) 4.3 % (0.0-11.0); NEUTROPHILS # (AUTO) 6.1 K/uL (1.8-8.9); NEUTROPHILS % (AUTO) 88.5 % (38.5-71.5); PLATELET COUNT (AUTO) 119 K/uL (152-348); RED BLOOD CELL COUNT(AUTO) 3.63 MIL/uL (4.06-5.63); TOTAL PROTEIN, SERUM 6.9 g/dL (6.4-8.2); WHITE BLOOD COUNT (AUTO) 6.9 K/uL (3.6-10.2)
--- NOTE | 2019-10-27 00:51 | NUR ---
Spoke with daughter Sara and bo daughter re: patient condition. Daughter very appreciative of updates given. No further concerns at this time
[2019-10-27 00:53] LABS: FERRITIN 192 ng/mL (26-388); LACTATE DEHYDROGENASE 214 U/L (85-227)
--- NOTE | 2019-10-27 01:25 | NUR ---
Called [facility] transfer service for panel placement
[2019-10-27 01:26] LABS: *BILIRUBIN,URIN NEGATIVE (NEGATIVE); *BLOOD, URINE NEGATIVE (NEGATIVE); *CLARITY,URINE CLEAR (CLEAR); *COLOR,URINE YELLOW (YELLOW); *KETONES,URINE NEGATIVE (NEGATIVE); LEUKOCYTE ESTERASE ,URINE NEGATIVE (NEGATIVE); NITRITE, URINE NEGATIVE (NEGATIVE); PH,URINE 7.5 (5.0-8.0); UGLUCOSE NEGATIVE (NEGATIVE)
[2019-10-27 01:29] LABS: CREATINE KINASE, TOTAL 110 U/L (39-308)
[2019-10-27 01:34] LABS: BACTERIA,URINE NONE SEEN /HPF (NONE SEEN); RBC,URINE 0-3 /HPF (0-3); SQUAMOUS EPITHELIAL CELL,UR FEW /HPF (NONE SEEN); WBC,URINE 0-3 /HPF (0-3)
--- NOTE | 2019-10-27 01:40 | NUR ---
cooling measues provided. Addendum: 10/27/19 at 0328 by GREGORY Cooling measures provided. pt tolerated well. No s/s of distress. Respiration even and unlabored. No cardiovascular distress noted SR up for safety. bed locked, lowest position. Will continue to monitor patient
--- NOTE | 2019-10-27 01:59 | NUR ---
Spoke with Dr. Dean Knight of [facility] Nephrology with new orders received
[2019-10-27] MEDS ORDERED: PIPERACILLIN SODIUM/TAZOBACTAM 3.375 G in IV DEXTROSE 5% 50 ML IV ONE (02:00)
[2019-10-27] MEDS ORDERED: PIPERACILLIN/TAZOBACTAM/D5W 50 ML IV ONE (02:01)
--- NOTE | 2019-10-27 02:40 | NUR ---
Cooling measures tolerated well. Temp 99.8 axillary No s/s of distress. Respiration even and unlabored Will continue to monitor patient
[2019-10-27] MEDS ORDERED: ACETAMINOPHEN 650 MG SUPP.RECT RC ONE ×3 (06:26→06:30)
--- NOTE | 2019-10-27 07:00 | NUR ---
Pericare provided. Tolerated well. No s/s of distress.
--- NOTE | 2019-10-27 07:00 | NUR ---
Full SBAR report received by INJECTION PRESS OPERATORMEHDI Isaacs.
--- NOTE | 2019-10-27 07:09 | NUR ---
Report given to MEHDI Melvin
[2019-10-27 07:24] LABS: BASOPHILS % (AUTO) 0.3 % (0.0-2.0); EOSINOPHILS % (AUTO) 0.1 % (0.0-7.0); HEMATOCRIT 34.5 % (36.7-47.1); HEMOGLOBIN 11.6 g/dL (12.5-16.3); LYMPHOCYTES # (AUTO) 0.6 K/uL (20.0-40.0); LYMPHOCYTES % (AUTO) 7.7 % (20.5-51.5); MEAN CORPUSCULAR HEMOGLOBIN 31.9 uug (23.8-33.4); MEAN CORPUSCULAR HGB CONC 34 g/dL (32.5-36.3); MEAN CORPUSCULAR VOLUME 95.2 fL (73.0-96.2); MONOCYTES # (AUTO) 0.6 K/uL (2.0-10.0); MONOCYTES % (AUTO) 6.9 % (0.0-11.0); NEUTROPHILS # (AUTO) 6.8 K/uL (1.8-8.9); PLATELET COUNT (AUTO) 103 K/uL (152-348); RED BLOOD CELL COUNT(AUTO) 3.62 MIL/uL (4.06-5.63)
[2019-10-27 07:29] LABS: CREATININE 1.2 mg/dL (0.6-1.3)
--- NOTE | 2019-10-27 07:53 | NUR ---
Full telephone SBAR report given to RN Maddy 2nd floor.
--- NOTE | 2019-10-27 08:20 | NUR ---
Spoke with Cesar (daughter) on the telephone and updated with plan of care. Daughter aware of pt's admission to [facility].
--- NOTE | 2019-10-27 08:45 | NUR ---
Pt transferred to room 208-T. Pt stable and nad noted upon transfer.
--- NOTE | 2019-10-27 09:00 | NUR ---
received patient from ER admitted for fever, patient alert x1 and has episode of confusion, no SOB and no c/o pain at this time. kept clean and dry at all times . iv intact and patent. safety and comfort provided. will continue to monitor.
[2019-10-27] MEDS ORDERED: TEMAZEPAM 15 MG CAPSULE PO PRN (10:15)
[2019-10-27] MEDS: DIVALPROEX 250 MG TABLET.DR PO SCH ×2 (12:48→17:09)
[2019-10-27 15:22] VITALS: BP 109/55
[2019-10-27] MEDS: ACETAMINOPHEN 325 MG TABLET PO PRN ×2 (17:00→20:50)
[2019-10-27] MEDS: CARVEDILOL 6.25 MG TABLET PO SCH (17:00)
[2019-10-27] MEDS: LORAZEPAM 0.5 MG TABLET PO SCH (17:08)
[2019-10-27] MEDS: risperiDONE 0.25 MG TABLET PO SCH (17:09)
[2019-10-27] MEDS: MEMANTINE HCL 10 MG TABLET PO SCH (17:09)
--- NOTE | 2019-10-27 18:07 | NUR ---
Patient alert and oriented , nonverbal . all due medications given and tolerated well . patient is cooperative. kept clean and dry at all times. will continue to monitor.
[2019-10-27 20:36] VITALS: BP 144/69
[2019-10-27] MEDS: CULTURELLE CAPSULE PO SCH (20:49)
[2019-10-27] MEDS: LIDOCAINE 5% PATCH TD SCH (20:56)
[2019-10-27] MEDS: POTASSIUM CHLORIDE 10 MEQ in IV D5 1/2 NS 1000 ML 1,000 ML IV PRN (20:56)
[2019-10-28] VITALS: BP 135/59
[2019-10-28 04:04] VITALS: BP 134/53
[2019-10-28 06:40] LABS: CREATININE 1.2 mg/dL (0.6-1.3); POTASSIUM 3.6 mmol/L (3.5-5.1)
--- NOTE | 2019-10-28 06:41 | NUR ---
Patient slept well. No SOB noted. Afebrile at this time. SR on Tele monitor. IV on CAITLIN intact and patent w/ IVF infusing. All needs attended. Will endorse accordingly
[2019-10-28 07:08] LABS: BASOPHILS % (AUTO) 0.4 % (0.0-2.0); EOSINOPHILS % (AUTO) 0.2 % (0.0-7.0); HEMATOCRIT 32.7 % (36.7-47.1); HEMOGLOBIN 10.9 g/dL (12.5-16.3); LYMPHOCYTES # (AUTO) 1.1 K/uL (20.0-40.0); LYMPHOCYTES % (AUTO) 11.7 % (20.5-51.5); MEAN CORPUSCULAR HGB CONC 33 g/dL (32.5-36.3); MEAN CORPUSCULAR VOLUME 95.9 fL (73.0-96.2); MONOCYTES # (AUTO) 0.5 K/uL (2.0-10.0); MONOCYTES % (AUTO) 5.5 % (0.0-11.0); NEUTROPHILS # (AUTO) 7.4 K/uL (1.8-8.9); NEUTROPHILS % (AUTO) 82.2 % (38.5-71.5); PLATELET COUNT (AUTO) 100 K/uL (152-348); RED BLOOD CELL COUNT(AUTO) 3.41 MIL/uL (4.06-5.63)
--- NOTE | 2019-10-28 07:30 | NUR ---
patient received in bed asleep, wakes up to touch and nonverbal and confused. no signs of respiratory distress at this time or any other distress. will continue to monitor.
[2019-10-28] MEDS: ASCORBIC ACID 500 MG TABLET PO SCH (08:40)
[2019-10-28] MEDS: CULTURELLE CAPSULE PO SCH ×2 (08:40→21:39)
[2019-10-28] MEDS: ASPIRIN EC 81 MG TABLET.DR PO SCH (08:40)
[2019-10-28] MEDS: PANTOPRAZOLE SODIUM 40 MG TABLET.DR PO SCH (08:41)
[2019-10-28] MEDS: MEMANTINE HCL 10 MG TABLET PO SCH ×2 (08:41→16:20)
[2019-10-28] MEDS: MULTIVIT, IRON, MIN NO. 8, FA TABLET PO SCH (08:41)
[2019-10-28] MEDS: DONEPEZIL 10 MG TABLET PO SCH (08:41)
[2019-10-28] MEDS: DIVALPROEX 250 MG TABLET.DR PO SCH ×3 (08:41→16:21)
[2019-10-28] MEDS: ZINC SULFATE 220 MG CAPSULE PO SCH (08:41)
[2019-10-28] MEDS: LORAZEPAM 0.5 MG TABLET PO SCH ×2 (08:41→16:21)
[2019-10-28] MEDS: LORATADINE 10 MG TABLET PO SCH (08:41)
[2019-10-28] MEDS: risperiDONE 0.25 MG TABLET PO SCH ×2 (08:41→16:21)
[2019-10-28] MEDS: CARVEDILOL 6.25 MG TABLET PO SCH ×2 (08:52→16:21)
[2019-10-28] MEDS ORDERED: ACETAMINOPHEN 325 MG TABLET PO SCH (09:00)
[2019-10-28] MEDS ORDERED: MELOXICAM 7.5 MG TABLET PO SCH (09:00)
[2019-10-28 11:00] VITALS: BP 114/62
[2019-10-28] MEDS: POTASSIUM CHLORIDE 10 MEQ in IV D5 1/2 NS 1000 ML 1,000 ML IV PRN (13:48)
[2019-10-28 16:00] VITALS: BP 127/76
--- NOTE | 2019-10-28 18:17 | NUR ---
patient in bed, nonverbal, opens eyes and looks at nurse. cooperative with care. no signs of distress of pain. safety and fall precautions in place. call light in reach. bed in low and locked position. will report to oncoming nurse.
[2019-10-28 20:16] VITALS: BP 130/69
[2019-10-28] MEDS: LIDOCAINE 5% PATCH TD SCH (21:39)
[2019-10-29 01:11] VITALS: BP 145/77
[2019-10-29 05:51] VITALS: BP 148/75
[2019-10-29] MEDS: POTASSIUM CHLORIDE 10 MEQ in IV D5 1/2 NS 1000 ML 1,000 ML IV PRN (06:18)
--- NOTE | 2019-10-29 07:15 | NUR ---
Received pt in bed awake but non-verbal, doesn't obey commands. On RA with no signs of SOB or distress noted at this time. IV CAITLIN midline running D5 1/2NS 10 mEq KCl @ 55cc/hr. Left arm contracted. Repositioned pt since leaning on left side. On KCI mattress. Bed locked in lowest position with siderails 3x up. Will continue to monitor.
[2019-10-29 07:31] LABS: BASOPHILS % (AUTO) 0.3 % (0.0-2.0); EOSINOPHILS # (AUTO) 0.1 K/uL (0.0-0.7); EOSINOPHILS % (AUTO) 1.2 % (0.0-7.0); HEMATOCRIT 34.2 % (36.7-47.1); HEMOGLOBIN 11.2 g/dL (12.5-16.3); LYMPHOCYTES # (AUTO) 0.7 K/uL (20.0-40.0); LYMPHOCYTES % (AUTO) 10.8 % (20.5-51.5); MEAN CORPUSCULAR HEMOGLOBIN 31.3 uug (23.8-33.4); MEAN CORPUSCULAR HGB CONC 33 g/dL (32.5-36.3); MEAN CORPUSCULAR VOLUME 95.2 fL (73.0-96.2); MONOCYTES # (AUTO) 0.5 K/uL (2.0-10.0); MONOCYTES % (AUTO) 6.8 % (0.0-11.0); NEUTROPHILS # (AUTO) 5.4 K/uL (1.8-8.9); NEUTROPHILS % (AUTO) 80.9 % (38.5-71.5); PLATELET COUNT (AUTO) 102 K/uL (152-348); RED BLOOD CELL COUNT(AUTO) 3.59 MIL/uL (4.06-5.63); WHITE BLOOD COUNT (AUTO) 6.7 K/uL (3.6-10.2)
[2019-10-29 08:00] VITALS: BP 144/87
[2019-10-29 08:19] LABS: BILIRUBIN,TOTAL 0.2 mg/dL (0.2-1.0); MAGNESIUM 1.7 mg/dL (1.8-2.4); POTASSIUM 3.9 mmol/L (3.5-5.1); TOTAL PROTEIN, SERUM 6.4 g/dL (6.4-8.2)
[2019-10-29] MEDS: LORATADINE 10 MG TABLET PO SCH (08:35)
[2019-10-29] MEDS: ZINC SULFATE 220 MG CAPSULE PO SCH (08:35)
[2019-10-29] MEDS: DONEPEZIL 10 MG TABLET PO SCH (08:35)
[2019-10-29] MEDS: ASCORBIC ACID 500 MG TABLET PO SCH (08:36)
[2019-10-29] MEDS: MEMANTINE HCL 10 MG TABLET PO SCH ×2 (08:36→17:14)
[2019-10-29] MEDS: ASPIRIN EC 81 MG TABLET.DR PO SCH (08:36)
[2019-10-29] MEDS: LORAZEPAM 0.5 MG TABLET PO SCH ×2 (08:36→17:14)
[2019-10-29] MEDS: MULTIVIT, IRON, MIN NO. 8, FA TABLET PO SCH (08:36)
[2019-10-29] MEDS: DIVALPROEX 250 MG TABLET.DR PO SCH ×3 (08:36→17:14)
[2019-10-29] MEDS: risperiDONE 0.25 MG TABLET PO SCH ×2 (08:36→17:14)
[2019-10-29] MEDS: PANTOPRAZOLE SODIUM 40 MG TABLET.DR PO SCH (08:36)
[2019-10-29] MEDS: CULTURELLE CAPSULE PO SCH ×2 (08:39→21:16)
[2019-10-29] MEDS: CARVEDILOL 6.25 MG TABLET PO SCH ×2 (09:31→17:14)
[2019-10-29] MEDS: ENOXAPARIN SODIUM 40 MG/0.4 ML DISP.SYRIN SQ SCH (09:38)
[2019-10-29] MEDS: PIPERACILLIN SODIUM/TAZOBACTAM 3.375 G in IV DEXTROSE 5% 50 ML IV SCH ×2 (15:06→21:04)
[2019-10-29 16:15] VITALS: BP 138/78
[2019-10-29] MEDS: MAGNESIUM SULFATE/D5W 100 ML IV SCH ×2 (16:56→17:58)
[2019-10-29 20:00] VITALS: BP 120/75
[2019-10-29] MEDS: LIDOCAINE 5% PATCH TD SCH (21:05)
[2019-10-29] MEDS: ACETAMINOPHEN 325 MG TABLET PO PRN (21:17)
[2019-10-30] VITALS: BP 146/75
[2019-10-30] MEDS: POTASSIUM CHLORIDE 10 MEQ in IV D5 1/2 NS 1000 ML 1,000 ML IV PRN (02:55)
[2019-10-30 07:14] LABS: BASOPHILS % (AUTO) 0.2 % (0.0-2.0); HEMATOCRIT 35.9 % (36.7-47.1); HEMOGLOBIN 11.9 g/dL (12.5-16.3); LYMPHOCYTES # (AUTO) 0.8 K/uL (20.0-40.0); LYMPHOCYTES % (AUTO) 15.6 % (20.5-51.5); MEAN CORPUSCULAR HEMOGLOBIN 31.1 uug (23.8-33.4); MEAN CORPUSCULAR HGB CONC 33 g/dL (32.5-36.3); MEAN CORPUSCULAR VOLUME 93.5 fL (73.0-96.2); MONOCYTES # (AUTO) 0.8 K/uL (2.0-10.0); MONOCYTES % (AUTO) 15.5 % (0.0-11.0); NEUTROPHILS # (AUTO) 3.5 K/uL (1.8-8.9); NEUTROPHILS % (AUTO) 68.7 % (38.5-71.5); PLATELET COUNT (AUTO) 129 K/uL (152-348); RED BLOOD CELL COUNT(AUTO) 3.83 MIL/uL (4.06-5.63); WHITE BLOOD COUNT (AUTO) 5.1 K/uL (3.6-10.2)
[2019-10-30 07:44] LABS: BILIRUBIN,TOTAL 0.3 mg/dL (0.2-1.0); CREATININE 1.1 mg/dL (0.6-1.3); MAGNESIUM 2.2 mg/dL (1.8-2.4); PHOSPHOROUS 3.4 mg/dL (2.5-4.9); POTASSIUM 3.8 mmol/L (3.5-5.1); TOTAL PROTEIN, SERUM 6.6 g/dL (6.4-8.2)
[2019-10-30 08:00] VITALS: BP 133/74
[2019-10-30] MEDS ORDERED: ZOLPIDEM 5 MG TABLET PO PRN (08:15)
[2019-10-30] MEDS ORDERED: ONDANSETRON 4 MG/2 ML VIAL IV PRN (08:15)
[2019-10-30] MEDS ORDERED: HYDROCODONE/APAP 5-325MG TABLET PO PRN (08:15)
[2019-10-30] MEDS ORDERED: Z GUARD REMEDY PASTE 57 GM TUBE TOP PRN (08:15)
[2019-10-30 08:21] LABS: BAND % (MANUAL) 6 % (0-10); LYMPHOCYTES % (MANUAL) 17 % (20-40); MONOCYTES % (MANUAL) 13 % (2-10); NEUTROPHILS % (MANUAL) 64 % (42-75)
[2019-10-30] MEDS: PIPERACILLIN SODIUM/TAZOBACTAM 3.375 G in IV DEXTROSE 5% 50 ML IV SCH ×3 (09:44→21:11)
[2019-10-30] MEDS: LORATADINE 10 MG TABLET PO SCH (09:45)
[2019-10-30] MEDS: CULTURELLE CAPSULE PO SCH ×2 (09:45→21:11)
[2019-10-30] MEDS: risperiDONE 0.25 MG TABLET PO SCH ×2 (09:46→17:25)
[2019-10-30] MEDS: ASCORBIC ACID 500 MG TABLET PO SCH (09:46)
[2019-10-30] MEDS: ENOXAPARIN SODIUM 40 MG/0.4 ML DISP.SYRIN SQ SCH (09:46)
[2019-10-30] MEDS: ZINC SULFATE 220 MG CAPSULE PO SCH (09:46)
[2019-10-30] MEDS: LORAZEPAM 0.5 MG TABLET PO SCH ×2 (09:46→17:24)
[2019-10-30] MEDS: MULTIVIT, IRON, MIN NO. 8, FA TABLET PO SCH (09:46)
[2019-10-30] MEDS: DIVALPROEX 250 MG TABLET.DR PO SCH ×3 (09:46→17:25)
[2019-10-30] MEDS: MEMANTINE HCL 10 MG TABLET PO SCH ×2 (09:46→17:25)
[2019-10-30] MEDS: DONEPEZIL 10 MG TABLET PO SCH (09:46)
[2019-10-30] MEDS: ASPIRIN EC 81 MG TABLET.DR PO SCH (09:46)
[2019-10-30] MEDS: PANTOPRAZOLE SODIUM 40 MG TABLET.DR PO SCH (09:48)
[2019-10-30 10:27] LABS: FERRITIN 304 ng/mL (26-388); LACTATE DEHYDROGENASE 257 U/L (85-227)
[2019-10-30] MEDS: CARVEDILOL 6.25 MG TABLET PO SCH ×2 (11:12→18:56)
--- NOTE | 2019-10-30 19:30 | NUR ---
RECEIVED PT IN NO ACUTE RESPIRATORY DISTRESS. . IV INTACT. SAFETY AND COMFORT PROVIDED. WILL CONTINUE TO MONITOR.
[2019-10-30 20:16] VITALS: BP 163/63
[2019-10-30] MEDS: LIDOCAINE 5% PATCH TD SCH (21:12)
[2019-10-30] MEDS: QUETIAPINE FUMARATE 25 MG TABLET PO PRN (21:12)
[2019-10-31 00:52] VITALS: BP 152/55
[2019-10-31 04:48] VITALS: BP 97/70
[2019-10-31] MEDS: ACETAMINOPHEN 325 MG TABLET PO PRN ×2 (05:13→17:12)
[2019-10-31] MEDS: MAGNESIUM HYDROXIDE 30 ML LIQUID UDC PO PRN ×2 (05:37→22:00)
--- NOTE | 2019-10-31 06:23 | NUR ---
PT IN NO ACUTE RESPIRATORY DISTRESS. IV INTACT. PT TURNED AND REPOSITIONED. PRESCRIBED MEDICATION GIVEN AND PT TOLERATED IT WELL. PT GIVEN MILK OF MAGNESIA AND PRUNE JUICE FOR BOWEL MOVEMENT. SEROQUEL GIVEN AT 2111H BECAUSE PT RESTLESS. PT GIVEN NORCO AT 0057H BECAUSE OF FACIAL GRIMACE AND MOANING. PT TOLERATED IT WELL. PT GIVEN TYLENOL AT 0513H TO PREVENT FEVER OF 99.2. SAFETY AND COMFORT PROVIDED. ALL NEEDS ARE MET. WILL ENDORSE TO INCOMING NURSE FOR CONTINUITY OF CARE.
[2019-10-31 07:39] LABS: *BILIRUBIN,URIN NEGATIVE (NEGATIVE); *CLARITY,URINE CLEAR (CLEAR); *COLOR,URINE YELLOW (YELLOW); *KETONES,URINE NEGATIVE (NEGATIVE); LEUKOCYTE ESTERASE ,URINE NEGATIVE (NEGATIVE); NITRITE, URINE NEGATIVE (NEGATIVE); UGLUCOSE NEGATIVE (NEGATIVE)
[2019-10-31 07:43] LABS: *BLOOD, URINE NEGATIVE (NEGATIVE)
[2019-10-31 07:47] LABS: BACTERIA,URINE NONE SEEN /HPF (NONE SEEN); MUCUS,URINE FEW /LPF (0-FEW); RBC,URINE 0-3 /HPF (0-3); SQUAMOUS EPITHELIAL CELL,UR FEW /HPF (NONE SEEN); WBC,URINE 0-3 /HPF (0-3)
[2019-10-31 07:59] LABS: *CREATININE,URINE 105.2 mg/dL (30-125); *URINE TOTAL PROTEIN RANDOM 45.1 mg/dL (<150/24HR)
--- NOTE | 2019-10-31 09:00 | NUR ---
IN BED CONFUSED AND DISORIENTED ALL NEEDS ANTICIPATED AND SATISFIED TOTALLY DEPENDENT FOR ALL ADL TURNED AND REPOSITIONED Q2H HEELS FLOATED MEDS ORDERED MADE COMFORTABLE WILL CONTINUE TO OBSERVE
[2019-10-31 09:29] LABS: BASOPHILS % (AUTO) 0.7 % (0.0-2.0); EOSINOPHILS % (AUTO) 0.4 % (0.0-7.0); HEMATOCRIT 36.1 % (36.7-47.1); LYMPHOCYTES # (AUTO) 0.7 K/uL (20.0-40.0); LYMPHOCYTES % (AUTO) 15.3 % (20.5-51.5); MEAN CORPUSCULAR HEMOGLOBIN 31.4 uug (23.8-33.4); MEAN CORPUSCULAR HGB CONC 33 g/dL (32.5-36.3); MEAN CORPUSCULAR VOLUME 94.3 fL (73.0-96.2); MONOCYTES # (AUTO) 0.8 K/uL (2.0-10.0); MONOCYTES % (AUTO) 16.4 % (0.0-11.0); NEUTROPHILS # (AUTO) 3.3 K/uL (1.8-8.9); NEUTROPHILS % (AUTO) 67.2 % (38.5-71.5); PLATELET COUNT (AUTO) 144 K/uL (152-348); RED BLOOD CELL COUNT(AUTO) 3.83 MIL/uL (4.06-5.63); WHITE BLOOD COUNT (AUTO) 4.9 K/uL (3.6-10.2)
[2019-10-31] MEDS: PIPERACILLIN SODIUM/TAZOBACTAM 3.375 G in IV DEXTROSE 5% 50 ML IV SCH ×3 (09:51→21:00)
[2019-10-31] MEDS: MEMANTINE HCL 10 MG TABLET PO SCH ×2 (09:52→17:00)
[2019-10-31] MEDS: ASPIRIN EC 81 MG TABLET.DR PO SCH (09:52)
[2019-10-31] MEDS: DONEPEZIL 10 MG TABLET PO SCH (09:52)
[2019-10-31] MEDS: risperiDONE 0.25 MG TABLET PO SCH ×2 (09:52→17:00)
[2019-10-31] MEDS: MULTIVIT, IRON, MIN NO. 8, FA TABLET PO SCH (09:52)
[2019-10-31] MEDS: LORAZEPAM 0.5 MG TABLET PO SCH ×2 (09:52→17:00)
[2019-10-31] MEDS: DIVALPROEX 250 MG TABLET.DR PO SCH ×3 (09:52→17:00)
[2019-10-31] MEDS: ZINC SULFATE 220 MG CAPSULE PO SCH (09:52)
[2019-10-31] MEDS: ASCORBIC ACID 500 MG TABLET PO SCH (09:52)
[2019-10-31] MEDS: PANTOPRAZOLE SODIUM 40 MG TABLET.DR PO SCH (09:52)
[2019-10-31] MEDS: LORATADINE 10 MG TABLET PO SCH (09:52)
[2019-10-31] MEDS: CARVEDILOL 6.25 MG TABLET PO SCH ×2 (09:53→17:06)
[2019-10-31] MEDS: ERGOCALCIFEROL 50,000 UNIT CAPSULE PO SCH (09:58)
[2019-10-31] MEDS: CULTURELLE CAPSULE PO SCH ×2 (09:58→21:01)
[2019-10-31] MEDS: ENOXAPARIN SODIUM 40 MG/0.4 ML DISP.SYRIN SQ SCH (09:59)
[2019-10-31 10:27] LABS: BAND % (MANUAL) 2 % (0-10); LYMPHOCYTES % (MANUAL) 14 % (20-40); MONOCYTES % (MANUAL) 14 % (2-10); NEUTROPHILS % (MANUAL) 70 % (42-75)
--- NOTE | 2019-10-31 11:00 | NUR ---
DR MACK HERE AND SEEN PATIENT WITH NO NEW ORDERS AT THIS TIME.
[2019-10-31 11:41] LABS: CARBON DIOXIDE 29 mmol/L (21-32); CHLORIDE 103 mmol/L (98-107); CHOLESTEROL 143 mg/dL (<200); CREATININE 1.5 mg/dL (0.6-1.3); FERRITIN 346 ng/mL (26-388); GLUCOSE 98 mg/dL (74-106); HDL CHOLESTEROL 33 mg/dL (40-60); LACTATE DEHYDROGENASE 264 U/L (85-227); MAGNESIUM 2.4 mg/dL (1.8-2.4); POTASSIUM 3.5 mmol/L (3.5-5.1); TRIGLYCERIDES 78 MG/DL (30-150); UREA NITROGEN, BLOOD 16 mg/dL (7-18)
[2019-10-31 12:00] VITALS: BP 122/67
[2019-10-31 16:00] VITALS: BP 170/80
[2019-10-31 17:06] VITALS: BP 128/80
--- NOTE | 2019-10-31 17:12 | NUR ---
TEMP AT THIS TIME IS 99.6 MEDICATED WITH TYLENOL AND COOLING MEASURES IN PROGRESS WILL CONTINUE TO OBSERVE.
--- NOTE | 2019-10-31 18:13 | NUR ---
PROCALCITONIN RESULTS PER LAB IS 4.[address] OCHOA BUT [address] HARRISON IS HYDROGEN POWER PLANT MANAGER NOTIFIED HIM WITH NO NEW ORDERS AT THIS TIME
[2019-10-31] MEDS: IV NS 1000 ML 1,000 ML IV PRN (18:19)
--- NOTE | 2019-10-31 19:30 | NUR ---
RECEIVED PT IN NO ACUTE DISTRESS. IV INTACT. SAFETY AND COMFORT PROVIDED. WILL CONTINUE TO MONITOR.
[2019-10-31 20:36] VITALS: BP 118/76
[2019-10-31] MEDS: LIDOCAINE 5% PATCH TD SCH (21:01)
--- NOTE | 2019-10-31 21:10 | NUR ---
LAB CALLED TO REPORT RESULT OF COVID TEST WAS NEGATIVE.
--- NOTE | 2019-10-31 23:00 | NUR ---
DR. TAM WAS NOTIFIED REGARDING THE RESULT OF THE COVID TEST IS NEGATIVE. Addendum: 11/01/19 at 0144 by ADRIEL MORENO RN WRONG PT
[2019-11-01] VITALS: BP 122/65
[2019-11-01 04:06] LABS: HEPATITIS B SURFACE AB Non Reactive (.); HEPATITIS B SURFACE AG Negative (Negative)
[2019-11-01 05:00] VITALS: BP 120/48
[2019-11-01] MEDS: ACETAMINOPHEN 325 MG TABLET PO PRN (06:10)
--- NOTE | 2019-11-01 06:35 | NUR ---
PT SLEPT INTERMITTENTLY. PT IN NO ACUTE DISTRESS. PRESCRIBED MEDICATION GIVEN AND PT TOLERATED IT WELL. PT GIVEN TYLENOL FOR PAIN AND LOW GRADE FEVER . PT TOLERATED IT WELL. PT GIVEN MILK OF MAGNESIA AND WARM PRUNE JUICE. STILL NO BOWEL MOVEMENT. SAFETY AND COMFORT PROVIDED. PT TURNED AND REPOSITIONED. ALL NEEDS ARE MET. WILL ENDORSE TO INCOMING NURSE FOR CONTINUITY OF CARE.
[2019-11-01 06:50] LABS: BASOPHILS % (AUTO) 0.7 % (0.0-2.0); EOSINOPHILS % (AUTO) 0.4 % (0.0-7.0); HEMATOCRIT 35.6 % (36.7-47.1); HEMOGLOBIN 11.9 g/dL (12.5-16.3); LYMPHOCYTES # (AUTO) 0.8 K/uL (20.0-40.0); MEAN CORPUSCULAR HEMOGLOBIN 31.5 uug (23.8-33.4); MEAN CORPUSCULAR HGB CONC 34 g/dL (32.5-36.3); MEAN CORPUSCULAR VOLUME 94.1 fL (73.0-96.2); MONOCYTES # (AUTO) 0.6 K/uL (2.0-10.0); MONOCYTES % (AUTO) 14.1 % (0.0-11.0); NEUTROPHILS % (AUTO) 66.8 % (38.5-71.5); PLATELET COUNT (AUTO) 143 K/uL (152-348); RED BLOOD CELL COUNT(AUTO) 3.79 MIL/uL (4.06-5.63); WHITE BLOOD COUNT (AUTO) 4.5 K/uL (3.6-10.2)
[2019-11-01 07:11] LABS: CARBON DIOXIDE 28 mmol/L (21-32); CHLORIDE 103 mmol/L (98-107); CREATININE 1.3 mg/dL (0.6-1.3); GLUCOSE 89 mg/dL (74-106); MAGNESIUM 2.1 mg/dL (1.8-2.4); PHOSPHOROUS 3.1 mg/dL (2.5-4.9); POTASSIUM 3.6 mmol/L (3.5-5.1); UREA NITROGEN, BLOOD 16 mg/dL (7-18)
[2019-11-01] MEDS: DIVALPROEX 250 MG TABLET.DR PO SCH ×3 (08:38→21:34)
[2019-11-01] MEDS: ASPIRIN EC 81 MG TABLET.DR PO SCH (08:39)
[2019-11-01] MEDS: ASCORBIC ACID 500 MG TABLET PO SCH (08:39)
[2019-11-01] MEDS: DONEPEZIL 10 MG TABLET PO SCH (08:39)
[2019-11-01] MEDS: LORATADINE 10 MG TABLET PO SCH (08:39)
[2019-11-01] MEDS: LORAZEPAM 0.5 MG TABLET PO SCH ×2 (08:39→16:23)
[2019-11-01] MEDS: MEMANTINE HCL 10 MG TABLET PO SCH ×2 (08:40→16:23)
[2019-11-01] MEDS: CULTURELLE CAPSULE PO SCH ×2 (08:41→21:41)
[2019-11-01] MEDS: ENOXAPARIN SODIUM 40 MG/0.4 ML DISP.SYRIN SQ SCH (08:43)
[2019-11-01] MEDS: ZINC SULFATE 220 MG CAPSULE PO SCH (08:48)
[2019-11-01] MEDS: MULTIVIT, IRON, MIN NO. 8, FA TABLET PO SCH (08:48)
[2019-11-01] MEDS: PANTOPRAZOLE SODIUM 40 MG TABLET.DR PO SCH (08:48)
[2019-11-01] MEDS: risperiDONE 0.25 MG TABLET PO SCH ×2 (08:52→16:20)
[2019-11-01] MEDS: PIPERACILLIN SODIUM/TAZOBACTAM 3.375 G in IV DEXTROSE 5% 50 ML IV SCH ×3 (09:11→21:34)
[2019-11-01] MEDS: CARVEDILOL 6.25 MG TABLET PO SCH ×2 (09:11→16:22)
[2019-11-01 12:00] VITALS: BP 145/85
[2019-11-01 16:00] VITALS: BP 128/70
--- NOTE | 2019-11-01 18:37 | NUR ---
Received patient awake in bed in stable condition. No SOB noted. Seen and examined by MD Camacho, MD Yates, MD Reyes. not in distress. Patient for stool specimen collection for occult blood. no complaint of pain/discomfort noted. will continue monitor
--- NOTE | 2019-11-01 19:05 | NUR ---
Patient negative covid test relayed to MD Yates. no new order. will continue monitor
[2019-11-01] MEDS ORDERED: FLEET ENEMA 133 ML BOTTLE RC PRN (19:15)
[2019-11-01 20:00] VITALS: BP 149/77
--- NOTE | 2019-11-01 20:00 | NUR ---
Received patient awake and alert in bed, no signs of acute distress noted. A/Ox1, nonverbal. No s/s of pain or SOB. Vitals WNL, no fevers noted. IVF running on the right upper arm, no s/s of infection or infiltration noted. Patient on KCL mattress. Safety measures initiated. Bed is low and locked, call light within reach, bed alarm on. Will continue to monitor.
[2019-11-01] MEDS: LIDOCAINE 5% PATCH TD SCH (21:36)
[2019-11-01] MEDS: IV NS 1000 ML 1,000 ML IV PRN (23:13)
[2019-11-02 00:30] VITALS: BP 138/73
[2019-11-02] MEDS: MAGNESIUM HYDROXIDE 30 ML LIQUID UDC PO PRN (02:52)
--- NOTE | 2019-11-02 02:59 | NUR ---
Patient need to collect Stool OB, noted only smear on schuyler, administered PRN milk of mag and prune juice. Will continue to monitor.
[2019-11-02 04:45] VITALS: BP 121/64
--- NOTE | 2019-11-02 05:30 | NUR ---
Saw order for re-swab for COVID test due day shift yesterday, called lab to see if specimen was sent, nothing was sent. Re-swab done and sent to lab.
[2019-11-02] MEDS: PIPERACILLIN SODIUM/TAZOBACTAM 3.375 G in IV DEXTROSE 5% 50 ML IV SCH ×3 (08:12→21:07)
[2019-11-02] MEDS: CARVEDILOL 6.25 MG TABLET PO SCH ×2 (09:00→17:19)
[2019-11-02] MEDS: ENOXAPARIN SODIUM 40 MG/0.4 ML DISP.SYRIN SQ SCH (09:13)
[2019-11-02] MEDS: MULTIVIT, IRON, MIN NO. 8, FA TABLET PO SCH (09:14)
[2019-11-02] MEDS: ZINC SULFATE 220 MG CAPSULE PO SCH (09:14)
[2019-11-02] MEDS: ASPIRIN EC 81 MG TABLET.DR PO SCH (09:14)
[2019-11-02] MEDS: PANTOPRAZOLE SODIUM 40 MG TABLET.DR PO SCH (09:14)
[2019-11-02] MEDS: MEMANTINE HCL 10 MG TABLET PO SCH ×2 (09:14→17:19)
[2019-11-02] MEDS: risperiDONE 0.25 MG TABLET PO SCH ×2 (09:15→17:19)
[2019-11-02] MEDS: DONEPEZIL 10 MG TABLET PO SCH (09:15)
[2019-11-02] MEDS: LORAZEPAM 0.5 MG TABLET PO SCH ×2 (09:16→17:19)
[2019-11-02] MEDS: ASCORBIC ACID 500 MG TABLET PO SCH (09:16)
[2019-11-02] MEDS: DIVALPROEX 250 MG TABLET.DR PO SCH ×3 (09:16→21:55)
[2019-11-02] MEDS: LORATADINE 10 MG TABLET PO SCH (09:16)
[2019-11-02] MEDS: CULTURELLE CAPSULE PO SCH ×2 (09:17→21:55)
[2019-11-02 17:08] VITALS: BP 156/78
[2019-11-02 20:00] VITALS: BP 134/67
--- NOTE | 2019-11-02 20:00 | NUR ---
Received patient resting in bed, easily to arouse. No signs of acute distress noted. A/Ox1, nonverbal. No signs of acute distress noted. No s/s of pain or SOB noted. Vitals WNL. No fevers noted. IVF running on the right upper arm. No s/s of infiltration or infection noted. On KCL mattress. No skin issues noted. Patient still needs stool OB, per morning shift nurse, patient did not eat much throughout the day and nurse performed disimpaction, but there was no stool noted. Will administer milk of mag again and prune juice. Will continue to monitor.
[2019-11-02] MEDS: LIDOCAINE 5% PATCH TD SCH (21:55)
[2019-11-02] MEDS: IV NS 1000 ML 1,000 ML IV PRN (21:55)
[2019-11-03 01:00] VITALS: BP 155/74
[2019-11-03] MEDS: MAGNESIUM HYDROXIDE 30 ML LIQUID UDC PO PRN (01:39)
[2019-11-03 05:00] VITALS: BP 138/78
[2019-11-03 06:29] LABS: BASOPHILS % (AUTO) 0.3 % (0.0-2.0); EOSINOPHILS % (AUTO) 0.5 % (0.0-7.0); HEMATOCRIT 35.2 % (36.7-47.1); HEMOGLOBIN 11.9 g/dL (12.5-16.3); LYMPHOCYTES % (AUTO) 17.1 % (20.5-51.5); MEAN CORPUSCULAR HEMOGLOBIN 31.7 uug (23.8-33.4); MEAN CORPUSCULAR HGB CONC 34 g/dL (32.5-36.3); MONOCYTES # (AUTO) 0.7 K/uL (2.0-10.0); MONOCYTES % (AUTO) 12.9 % (0.0-11.0); NEUTROPHILS % (AUTO) 69.2 % (38.5-71.5); PLATELET COUNT (AUTO) 208 K/uL (152-348); RED BLOOD CELL COUNT(AUTO) 3.74 MIL/uL (4.06-5.63); WHITE BLOOD COUNT (AUTO) 5.7 K/uL (3.6-10.2)
[2019-11-03 06:48] LABS: CREATININE 1.1 mg/dL (0.6-1.3); MAGNESIUM 2.2 mg/dL (1.8-2.4); PHOSPHOROUS 2.6 mg/dL (2.5-4.9); POTASSIUM 3.7 mmol/L (3.5-5.1)
--- NOTE | 2019-11-03 07:15 | NUR ---
Received patient resting in bed. No s/s of acute distress or pain. Bed in lowest position, side rails up x2, call light within reach. Will continue to monitor.
[2019-11-03 08:30] VITALS: BP 173/82
[2019-11-03] MEDS: PIPERACILLIN SODIUM/TAZOBACTAM 3.375 G in IV DEXTROSE 5% 50 ML IV SCH ×3 (08:51→22:33)
[2019-11-03] MEDS: DONEPEZIL 10 MG TABLET PO SCH (08:52)
[2019-11-03] MEDS: ENOXAPARIN SODIUM 40 MG/0.4 ML DISP.SYRIN SQ SCH (08:52)
[2019-11-03] MEDS: CULTURELLE CAPSULE PO SCH ×2 (08:53→22:34)
[2019-11-03] MEDS: LORAZEPAM 0.5 MG TABLET PO SCH ×2 (08:53→16:55)
[2019-11-03] MEDS: LORATADINE 10 MG TABLET PO SCH (08:53)
[2019-11-03] MEDS: DIVALPROEX 250 MG TABLET.DR PO SCH ×3 (08:53→22:34)
[2019-11-03] MEDS: risperiDONE 0.25 MG TABLET PO SCH ×2 (08:54→16:55)
[2019-11-03] MEDS: ASCORBIC ACID 500 MG TABLET PO SCH (08:54)
[2019-11-03] MEDS: MULTIVIT, IRON, MIN NO. 8, FA TABLET PO SCH (08:54)
[2019-11-03] MEDS: MEMANTINE HCL 10 MG TABLET PO SCH ×2 (08:54→16:55)
[2019-11-03] MEDS: PANTOPRAZOLE SODIUM 40 MG TABLET.DR PO SCH (08:54)
[2019-11-03] MEDS: ASPIRIN EC 81 MG TABLET.DR PO SCH (08:54)
[2019-11-03] MEDS: ZINC SULFATE 220 MG CAPSULE PO SCH (08:55)
[2019-11-03] MEDS: CARVEDILOL 6.25 MG TABLET PO SCH (08:56)
[2019-11-03 12:00] VITALS: BP 161/83
[2019-11-03] MEDS: hydrALAZINE HCL 25 MG TABLET PO PRN (12:16)
[2019-11-03 16:00] VITALS: BP 160/90
[2019-11-03] MEDS ORDERED: CARVEDILOL 6.25 MG TABLET PO SCH (17:00)
[2019-11-03] MEDS: IV NS 1000 ML 1,000 ML IV PRN ×2 (17:13→17:14)
--- NOTE | 2019-11-03 18:35 | NUR ---
Patient cooperative with care, continues to be non verbal, This story writer took over patient care at 330pm, patient in bed, air mattress inflated, bed in low position, side rails up x2, safety measures in place. Patient turned q2hr, and fed evening meal. Patient did not eat very much. One void of urine cleaned up.
--- NOTE | 2019-11-03 19:20 | NUR ---
Received patient resting in bed in semifowlers position. Peripheral IV in the right upper arm. No padilla catheter. No s/s of acute distress or pain. Bed in lowest position, side rails up x2, call light within reach. Will continue to monitor.
[2019-11-03 20:00] VITALS: BP 181/91
[2019-11-03] MEDS: LIDOCAINE 5% PATCH TD SCH (22:34)
[2019-11-03] MEDS: CARVEDILOL 12.5 MG TABLET PO SCH (22:34)
[2019-11-04] VITALS: BP 165/83
[2019-11-04] MEDS: hydrALAZINE HCL 25 MG TABLET PO PRN ×2 (01:04→16:19)
--- NOTE | 2019-11-04 01:05 | NUR ---
midnight vitals showed elevated blood pressure in the 160s. Administered PRN Hydralazine.
[2019-11-04 04:00] VITALS: BP 144/81
--- NOTE | 2019-11-04 06:23 | NUR ---
Patient remains stable, hydralazine effective with blood pressure in the 140s at 0400. Patient bathed and all linens changed. Patient resting comfortably with no signs of distress.
[2019-11-04 07:00] VITALS: BP 164/74
--- NOTE | 2019-11-04 07:10 | NUR ---
Received patient sleeping in bed. No s/s of acute distress or pain. Bed in lowest position, side rails up x2, call light within reach. Will continue to monitor.
[2019-11-04] MEDS: DONEPEZIL 10 MG TABLET PO SCH (09:04)
[2019-11-04] MEDS: LORAZEPAM 0.5 MG TABLET PO SCH ×2 (09:04→16:18)
[2019-11-04] MEDS: PIPERACILLIN SODIUM/TAZOBACTAM 3.375 G in IV DEXTROSE 5% 50 ML IV SCH ×3 (09:04→20:39)
[2019-11-04] MEDS: risperiDONE 0.25 MG TABLET PO SCH ×2 (09:07→16:18)
[2019-11-04] MEDS: MEMANTINE HCL 10 MG TABLET PO SCH ×2 (09:08→16:18)
[2019-11-04] MEDS: LORATADINE 10 MG TABLET PO SCH (09:08)
[2019-11-04] MEDS: CULTURELLE CAPSULE PO SCH ×2 (09:08→20:38)
[2019-11-04] MEDS: CARVEDILOL 12.5 MG TABLET PO SCH ×2 (09:08→20:40)
[2019-11-04] MEDS: ASCORBIC ACID 500 MG TABLET PO SCH (09:09)
[2019-11-04] MEDS: DIVALPROEX 250 MG TABLET.DR PO SCH ×4 (09:09→21:07)
[2019-11-04] MEDS: ASPIRIN EC 81 MG TABLET.DR PO SCH (09:09)
[2019-11-04] MEDS: PANTOPRAZOLE SODIUM 40 MG TABLET.DR PO SCH (09:09)
[2019-11-04] MEDS: ZINC SULFATE 220 MG CAPSULE PO SCH (09:09)
[2019-11-04] MEDS: MULTIVIT, IRON, MIN NO. 8, FA TABLET PO SCH (09:10)
[2019-11-04] MEDS: ENOXAPARIN SODIUM 40 MG/0.4 ML DISP.SYRIN SQ SCH (09:10)
[2019-11-04] MEDS: IV NS 1000 ML 1,000 ML IV PRN ×2 (09:32→20:48)
[2019-11-04 12:00] VITALS: BP 151/90
[2019-11-04] MEDS: BISACODYL 10 MG SUPP.RECT RC PRN (16:19)
--- NOTE | 2019-11-04 18:31 | NUR ---
Patient rested in bed throughout day. Patient had not had a BM in 7 days suppository given, patient had big BM. Patient reswabbed for COVID. Safety measures provided. Will endorse to oncoming nurse.
[2019-11-04 20:03] VITALS: BP 125/77
[2019-11-04] MEDS: QUETIAPINE FUMARATE 25 MG TABLET PO PRN (20:38)
[2019-11-04] MEDS: LIDOCAINE 5% PATCH TD SCH (20:39)
--- NOTE | 2019-11-04 22:23 | NUR ---
COREG NOT ADMINISTERED TONIGHT FOR BRADYCARDIA. V/S WNL. NO S/S OF ACUTE DISTRESS AT THIS MOMENT. DEPAKOTE DROPPED ON FLOOR AND WASTED. [facility]
[2019-11-05 00:30] VITALS: BP 152/74
--- NOTE | 2019-11-05 00:30 | NUR ---
patient sleeping and hard to wake for administration of hydralazine. stable at this time. v/s WNL. sinus angelita on tele monitor. will continue to closely monitor.
--- NOTE | 2019-11-05 04:21 | NUR ---
Patient a/ox1. No s/s of acute distress noted. v/s stable. Afebrile. 2L on NC. Sinus Edison on monitor. safety precautions in place. all needs met. Will continue to monitor.
[2019-11-05 04:50] VITALS: BP 155/94
[2019-11-05] MEDS: BISACODYL 10 MG SUPP.RECT RC PRN (05:52)
--- NOTE | 2019-11-05 06:11 | NUR ---
Dulcolax wasted this morning. patient very agitated this morning. not able to administer.
[2019-11-05 06:21] LABS: BASOPHILS % (AUTO) 0.4 % (0.0-2.0); EOSINOPHILS # (AUTO) 0.1 K/uL (0.0-0.7); EOSINOPHILS % (AUTO) 1.2 % (0.0-7.0); HEMATOCRIT 36.5 % (36.7-47.1); LYMPHOCYTES # (AUTO) 1.2 K/uL (20.0-40.0); LYMPHOCYTES % (AUTO) 14.5 % (20.5-51.5); MEAN CORPUSCULAR HGB CONC 33 g/dL (32.5-36.3); MEAN CORPUSCULAR VOLUME 94.2 fL (73.0-96.2); MONOCYTES % (AUTO) 11.8 % (0.0-11.0); NEUTROPHILS % (AUTO) 72.1 % (38.5-71.5); PLATELET COUNT (AUTO) 314 K/uL (152-348); RED BLOOD CELL COUNT(AUTO) 3.88 MIL/uL (4.06-5.63); WHITE BLOOD COUNT (AUTO) 8.3 K/uL (3.6-10.2)
[2019-11-05 07:10] LABS: CREATININE 1.3 mg/dL (0.6-1.3); POTASSIUM 3.8 mmol/L (3.5-5.1)
[2019-11-05 07:11] LABS: MAGNESIUM 2.3 mg/dL (1.8-2.4); PHOSPHOROUS 3.2 mg/dL (2.5-4.9)
[2019-11-05] MEDS: ZINC SULFATE 220 MG CAPSULE PO SCH (09:25)
[2019-11-05] MEDS: LORATADINE 10 MG TABLET PO SCH (09:26)
[2019-11-05] MEDS: ASCORBIC ACID 500 MG TABLET PO SCH (09:26)
[2019-11-05] MEDS: ASPIRIN EC 81 MG TABLET.DR PO SCH (09:26)
[2019-11-05] MEDS: LORAZEPAM 0.5 MG TABLET PO SCH ×2 (09:26→17:41)
[2019-11-05] MEDS: MEMANTINE HCL 10 MG TABLET PO SCH ×2 (09:26→17:41)
[2019-11-05] MEDS: MULTIVIT, IRON, MIN NO. 8, FA TABLET PO SCH (09:26)
[2019-11-05] MEDS: PANTOPRAZOLE SODIUM 40 MG TABLET.DR PO SCH (09:26)
[2019-11-05] MEDS: risperiDONE 0.25 MG TABLET PO SCH ×2 (09:26→17:41)
[2019-11-05] MEDS: DIVALPROEX 250 MG TABLET.DR PO SCH ×3 (09:26→22:09)
[2019-11-05] MEDS: DONEPEZIL 10 MG TABLET PO SCH (09:26)
[2019-11-05] MEDS: ENOXAPARIN SODIUM 40 MG/0.4 ML DISP.SYRIN SQ SCH (09:27)
[2019-11-05] MEDS: CULTURELLE CAPSULE PO SCH ×2 (09:30→22:08)
[2019-11-05] MEDS: CARVEDILOL 12.5 MG TABLET PO SCH ×2 (09:40→22:08)
[2019-11-05] MEDS: IV NS 1000 ML 1,000 ML IV PRN ×2 (09:51→22:20)
[2019-11-05 12:32] VITALS: BP 158/85
[2019-11-05 16:00] VITALS: BP 181/88
[2019-11-05 20:08] VITALS: BP 165/80
[2019-11-05] MEDS: LIDOCAINE 5% PATCH TD SCH (22:09)
[2019-11-06] VITALS (7 sets, daily range): BP systolic 126–179; BP diastolic 54–90
--- NOTE | 2019-11-06 08:00 | NUR ---
received pt. resting in bed alert oriented to self. pt. appears in no distress resting comfortably. Pt on 2 L saturating 98%. IV in R UA 22 guage intact patent saline lock. IV in L wrist 22 gauge intact patent running prescribed fluids. Safety measures in place. call light within reach. will continue to monitor pt.
[2019-11-06] MEDS: ASPIRIN EC 81 MG TABLET.DR PO SCH (08:42)
[2019-11-06] MEDS: MEMANTINE HCL 10 MG TABLET PO SCH ×2 (08:43→16:36)
[2019-11-06] MEDS: LORAZEPAM 0.5 MG TABLET PO SCH ×2 (08:43→16:36)
[2019-11-06] MEDS: PANTOPRAZOLE SODIUM 40 MG TABLET.DR PO SCH (08:43)
[2019-11-06] MEDS: ASCORBIC ACID 500 MG TABLET PO SCH (08:43)
[2019-11-06] MEDS: DIVALPROEX 250 MG TABLET.DR PO SCH ×3 (08:43→21:26)
[2019-11-06] MEDS: DONEPEZIL 10 MG TABLET PO SCH (08:43)
[2019-11-06] MEDS: ZINC SULFATE 220 MG CAPSULE PO SCH (08:43)
[2019-11-06] MEDS: LORATADINE 10 MG TABLET PO SCH (08:43)
[2019-11-06] MEDS: MULTIVIT, IRON, MIN NO. 8, FA TABLET PO SCH (08:43)
[2019-11-06] MEDS: risperiDONE 0.25 MG TABLET PO SCH ×2 (08:43→16:36)
[2019-11-06] MEDS: CARVEDILOL 12.5 MG TABLET PO SCH ×2 (08:44→21:00)
[2019-11-06] MEDS: CULTURELLE CAPSULE PO SCH ×2 (08:44→21:26)
[2019-11-06] MEDS: ENOXAPARIN SODIUM 40 MG/0.4 ML DISP.SYRIN SQ SCH (08:53)
[2019-11-06] MEDS: hydrALAZINE HCL 25 MG TABLET PO PRN ×2 (18:06→21:30)
[2019-11-06] MEDS: IV NS 1000 ML 1,000 ML IV PRN (18:26)
--- NOTE | 2019-11-06 18:49 | NUR ---
No acute events throughout shift. One episode of increased BP provided pt with hydralazine. BP decreased to 147/70. Pt. on 2 L NC saturating at 93-95%. All needs met. Made pt. comfortable. safety measures in place. call light within reach. will endorse to pm nurse.
[2019-11-06] MEDS: LIDOCAINE 5% PATCH TD SCH (21:26)
[2019-11-07] VITALS (7 sets, daily range): BP systolic 146–177; BP diastolic 69–100
--- NOTE | 2019-11-07 06:34 | NUR ---
Patient slept well. On O2 at 2lpm via NC saturation at 94-95%. Sinus Edison on Tele monitor. IV on LFA 22g intact and patent w/ IVF infusing. Turned and repositioned. Will endorse accordingly
[2019-11-07] MEDS: IV NS 1000 ML 1,000 ML IV PRN (07:04)
[2019-11-07] MEDS: DONEPEZIL 10 MG TABLET PO SCH (09:28)
[2019-11-07] MEDS: LORATADINE 10 MG TABLET PO SCH (09:29)
[2019-11-07] MEDS: CARVEDILOL 12.5 MG TABLET PO SCH ×2 (09:29→21:10)
[2019-11-07] MEDS: LORAZEPAM 0.5 MG TABLET PO SCH ×2 (09:29→17:30)
[2019-11-07] MEDS: MEMANTINE HCL 10 MG TABLET PO SCH ×2 (09:30→17:30)
[2019-11-07] MEDS: ERGOCALCIFEROL 50,000 UNIT CAPSULE PO SCH (09:30)
[2019-11-07] MEDS: CULTURELLE CAPSULE PO SCH ×2 (09:30→21:09)
[2019-11-07] MEDS: ASPIRIN EC 81 MG TABLET.DR PO SCH (09:30)
[2019-11-07] MEDS: DIVALPROEX 250 MG TABLET.DR PO SCH ×3 (09:30→21:09)
[2019-11-07] MEDS: risperiDONE 0.25 MG TABLET PO SCH ×2 (09:31→17:30)
[2019-11-07] MEDS: MULTIVIT, IRON, MIN NO. 8, FA TABLET PO SCH (09:31)
[2019-11-07] MEDS: PANTOPRAZOLE SODIUM 40 MG TABLET.DR PO SCH (09:31)
[2019-11-07] MEDS: ZINC SULFATE 220 MG CAPSULE PO SCH (09:32)
[2019-11-07] MEDS: ASCORBIC ACID 500 MG TABLET PO SCH (09:32)
[2019-11-07] MEDS: ENOXAPARIN SODIUM 40 MG/0.4 ML DISP.SYRIN SQ SCH (10:03)
[2019-11-07] MEDS: hydrALAZINE HCL 25 MG TABLET PO PRN (17:30)
--- NOTE | 2019-11-07 18:20 | NUR ---
Patient rested throughout day. No S/S of acute distress or pain. Placed condom catheter on patient due to urinary frequency. Patient had episode of high BP PRN medication administered. safety measures provided. Will endorse to oncoming nurse.
--- NOTE | 2019-11-07 21:00 | NUR ---
Heart rate drops when he is resting into the low 50s, however he is not symptomatic and saturation and blood pressure still remain WNL. Heart rate increases when he is awoken. I do not feel uncomfortable administering his carvedilol despite his HR being in the high 50s. Will continue to monitor.
[2019-11-07] MEDS: LIDOCAINE 5% PATCH TD SCH (21:10)
[2019-11-08] MEDS: hydrALAZINE HCL 25 MG TABLET PO PRN ×3 (00:06→16:30)
[2019-11-08 04:00] VITALS: BP 156/84
[2019-11-08 07:34] LABS: CREATININE 1.2 mg/dL (0.6-1.3); MAGNESIUM 2.2 mg/dL (1.8-2.4); PHOSPHOROUS 2.9 mg/dL (2.5-4.9); POTASSIUM 3.7 mmol/L (3.5-5.1)
[2019-11-08 07:40] LABS: BASOPHILS % (AUTO) 0.5 % (0.0-2.0); EOSINOPHILS # (AUTO) 0.1 K/uL (0.0-0.7); EOSINOPHILS % (AUTO) 1.5 % (0.0-7.0); HEMOGLOBIN 10.8 g/dL (12.5-16.3); LYMPHOCYTES # (AUTO) 1.4 K/uL (20.0-40.0); LYMPHOCYTES % (AUTO) 15.4 % (20.5-51.5); MEAN CORPUSCULAR HEMOGLOBIN 31.3 uug (23.8-33.4); MEAN CORPUSCULAR HGB CONC 34 g/dL (32.5-36.3); MONOCYTES # (AUTO) 0.9 K/uL (2.0-10.0); MONOCYTES % (AUTO) 10.4 % (0.0-11.0); NEUTROPHILS # (AUTO) 6.5 K/uL (1.8-8.9); NEUTROPHILS % (AUTO) 72.2 % (38.5-71.5); PLATELET COUNT (AUTO) 388 K/uL (152-348); RED BLOOD CELL COUNT(AUTO) 3.44 MIL/uL (4.06-5.63); WHITE BLOOD COUNT (AUTO) 8.9 K/uL (3.6-10.2)
[2019-11-08] MEDS: MULTIVIT, IRON, MIN NO. 8, FA TABLET PO SCH (08:48)
[2019-11-08] MEDS: DONEPEZIL 10 MG TABLET PO SCH (08:48)
[2019-11-08] MEDS: risperiDONE 0.25 MG TABLET PO SCH ×2 (08:49→16:30)
[2019-11-08] MEDS: LORATADINE 10 MG TABLET PO SCH (08:49)
[2019-11-08] MEDS: DIVALPROEX 250 MG TABLET.DR PO SCH ×2 (08:49→16:30)
[2019-11-08] MEDS: ASPIRIN EC 81 MG TABLET.DR PO SCH (08:49)
[2019-11-08] MEDS: CARVEDILOL 12.5 MG TABLET PO SCH (08:49)
[2019-11-08] MEDS: PANTOPRAZOLE SODIUM 40 MG TABLET.DR PO SCH (08:49)
[2019-11-08] MEDS: CULTURELLE CAPSULE PO SCH (08:49)
[2019-11-08] MEDS: ZINC SULFATE 220 MG CAPSULE PO SCH (08:49)
[2019-11-08] MEDS: MEMANTINE HCL 10 MG TABLET PO SCH ×2 (08:49→16:29)
[2019-11-08] MEDS: LORAZEPAM 0.5 MG TABLET PO SCH ×2 (09:00→16:30)
[2019-11-08] MEDS: ASCORBIC ACID 500 MG TABLET PO SCH (09:00)
[2019-11-08] MEDS: ENOXAPARIN SODIUM 40 MG/0.4 ML DISP.SYRIN SQ SCH (09:04)
[2019-11-08 10:06] VITALS: BP 184/88
[2019-11-08] MEDS ORDERED: CARV12.52 PO (11:30)
[2019-11-08 12:54] VITALS: BP 153/68
--- NOTE | 2019-11-08 13:00 | NUR ---
Contacted patients daughter Sara to discuss discharge and notify her that her father will be discharged. Discussion about patient's blood pressure discussed and that the heart rate was too low to give beta shavon but hydralazine was given and blood pressure resolved to 153 systolic.
[2019-11-08 16:43] VITALS: BP 162/64
[2019-11-08 18:00] VITALS: BP 153/98
--- NOTE | 2019-11-08 18:10 | NUR ---
Patient's iv removed, new diaper applied, and vitals recorded before discharge. Patient in no distress at time of discharge.
--- NOTE | 2019-11-08 23:45 | NUR ---
spoke with daughter lety busby. daughter aware that patient is discharged to [facility] and patient belongings will be on 2nd floor in storage room behind charge nurse desk. EVS informed RN of belongings after cleaning patient room. night nursing network control supervisor aware patient belongings will be held on second floor.
--- NOTE | 2019-11-09 16:30 | NUR ---
Patient given Hydralazine PRN for elevated BP. Addendum: 11/09/19 at 1653 by EZEQUIEL GASTON RN Date 11/08/19 Error
--- NOTE | 2019-11-10 04:16 | NUR ---
wang in case management aware patients belongings on 2nd floor.
== END 2019-11-08 18:10 | DRG 177 ==
LOC: ER 23:39 → TELE 10-27 08:05
PROVIDERS: ADMIT Internal Medicine; ATTEND Internal Medicine
DX: U07.1 COVID-19 (principal); G93.41 Metabolic encephalopathy; N17.0 Acute kidney failure with tubular necrosis; J12.89 Other viral pneumonia; E87.1 Hypo-osmolality and hyponatremia; R50.9 Fever, unspecified; G30.9 Alzheimer's disease, unspecified; F02.80 Dementia in other diseases classified elsewhere, unspecified severity, without behavioral disturbance, psychotic disturbance, mood disturbance, and anxiety; D69.6 Thrombocytopenia, unspecified; I10 Essential (primary) hypertension; I25.10 Atherosclerotic heart disease of native coronary artery without angina pectoris; R53.1 Weakness; I12.9 Hypertensive chronic kidney disease with stage 1 through stage 4 chronic kidney disease, or unspecified chronic kidney disease; N18.9 Chronic kidney disease, unspecified; W19.XXXA Unspecified fall, initial encounter; Y93.9 Activity, unspecified; Y92.89 Other specified places as the place of occurrence of the external cause; D50.0 Iron deficiency anemia secondary to blood loss (chronic); Z79.82 Long term (current) use of aspirin
CPT/HCPCS: 36415; 51702; 70030-TC; 71045; 83550; 83605; 83615; 83735; 83970; 84100; 84156; 84300; 85025; 86140; 86706; 87040; 87086; 87340; 87400; 93005; C1758; G0378; J1650; J2543; J3475; J3480; J3490; J7030; J7060